=== PATIENT | male | born 1960 | race Caucasian/White ===

== ENCOUNTER 2017-05-24 11:46 | Emergency (ER) | payer BC ==
[2017-05-24 12:03] VITALS: BP 152/115
[2017-05-24] MEDS ORDERED: Oxymetazoline 0.05% Nasal Spray 15 ML Bottle NAS ONE (12:09)
--- NOTE | 2017-05-24 12:10 | EDM.PDOC ---
ED HPI GENERAL MEDICAL PROBLEM - General Chief Complaint: ENT Problem Stated Complaint: Nosebleed Time Seen by Provider: 05/24/17 12:05 Source of Information: Reports: Patient, RN Notes Reviewed History Limitations: Reports: No Limitations - History of Present Illness INITIAL COMMENTS - FREE TEXT/NARRATIVE: 57 year old male presents to the ED with a left nare nose bleed that started around 4:30 this morning. It initially gushed but has continued to ooze since then. He is not on blood thinners. No facial injury. 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: Reports: Other (see below) Other 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: pressure applied - Related Data Allergies Allergy/AdvReac Type Severity Reaction Status Date / Time No Known Allergies Allergy Verified 05/24/17 12:03 Home Meds: Home Meds Indomethacin [Indocin] 25 mg PO DAILY PRN 05/24/17 [History] Past Medical History - Past Health History Medical/Surgical History: Denies Medical/Surgical History HEENT History: Reports: Epistaxis Gastrointestinal History: Reports: Other (See Below) Other Gastrointestinal History: gout Musculoskeletal History: Reports: Gout Social & Family History - Family History Family Medical History: Noncontributory - Tobacco Use Smoking Status *Q: Never Smoker - Caffeine Use Caffeine Use: Reports: Coffee - Alcohol Use Days Per Week of Alcohol Use: 3 Number of Drinks Per Day: 3 Total Drinks Per Week: 9 - Recreational Drug Use Recreational Drug Use: No ED ROS ENT - Review of Systems Review Of Systems: See Below Constitutional: Reports: No Symptoms. Denies: Fever, Chills HEENT: Reports: Nosebleed ED EXAM, ENT - Physical Exam Exam: See Below Exam Limited By: No Limitations General Appearance: Alert, WD/WN, No Apparent Distress Nose: Normal Inspection, Normal Mucousa, Dried Blood (left nare ). No: Nasal Deformity, Nasal Swelling, Nasal Ecchymosis, Septal Deformity, Septal Hematoma, Active Bleeding Mouth/Throat: Normal Inspection, Normal Oropharynx Course - Vital Signs Last Recorded V/S: Last Vital Signs Temp 97.8 F 05/24/17 11:59 Pulse 110 H 05/24/17 11:59 Resp 18 05/24/17 11:59 BP 152/115 H 05/24/17 11:59 Pulse Ox 98 05/24/17 11:59 - Orders/Labs/Meds Meds: Medications Discontinued Medications Generic Name Dose Route Start Last Admin Trade Name Jc PRN Reason Stop Dose Admin Oxymetazoline HCl 1 ml 05/24/17 12:09 05/24/17 12:31 Afrin Original 0.05% Nasal [place] MAHENDRA 05/24/17 12:10 1 ml ONETIME ONE Administration - Re-Assessments/Exams Free Text/Narrative Re-Assessment/Exam: No active bleeding on arrival. Treated successfully with afrin nasal spray and pressure. Educated on treatment at home and prevention of nose bleeds. Educated on return precautions. Departure - Departure Time of Disposition: 12:50 Disposition: Home, Self-Care 01 Condition: Good Clinical Impression: Epistaxis - Discharge Information Instructions: Nosebleed, [id number] Referrals: Malik Salvador Jr, MD [Primary Care Provider] - Forms: ED Department Discharge Additional Instructions: If your nose starts to bleed again, do the same thing we did today. Blow your nose then immediately spray 2-3 sprays of afrin in your nare. Then hold pressure for 10-15 minutes. Return to ER if you are unable to stop the bleeding at home Prevention: 1. Humidifier in your bedroom and main living areas 2. Saline nasal spray to both nostrils twice a day followed by 3. Avery nasal gel twice a day.
== END 2017-05-24 13:17 | disposition home or self-care (01) ==
LOC: JD.ED 11:46
DX: R04.0 Epistaxis (principal); Z79.899 Other long term (current) drug therapy
CPT/HCPCS: 99283; A9270; 99282

== ENCOUNTER 2018-04-04 17:54 | Emergency (ER) | payer BC ==
[2018-04-04 18:04] VITALS: BP 146/102
[2018-04-04] MEDS ORDERED: Lidocaine 1% with EPINEPHrine 1:100,000 20 ML MDV INJECT ONE (19:09)
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
--- NOTE | 2018-04-05 11:05 | CT ---
CT cervical spine Technique: Multiple axial sections were obtained from above C1 inferiorly to the bottom of T3. Reconstructed sagittal and coronal images were reviewed. Comparison: No prior CT cervical spine imaging. Findings: Moderate to severe disc space narrowing is noted at C5-C6 with posterior osteophytes and mild anterior osteophytes. Minimal anterior osteophytes are noted at C6-C7. Vertebral body heights are maintained. Slight degenerative change is noted between the dens and anterior arch of C1. Mild scattered degenerative apophyseal change is seen throughout the cervical spine. No fracture or abnormal subluxation is seen. Neural foramina are fairly well patent. Bony central canal stenosis is seen. Impression: 1. Mild degenerative change. Nothing acute is appreciated on CT study of the cervical spine. Diagnostic code #2 I agree with preliminary report from [facility], finalized at 04/04/18, 9:05 PM Central Time
--- NOTE | 2018-04-05 11:05 | CT ---
Head CT Technique: Multiple axial sections through the brain were obtained. Intravenous contrast was not utilized. Comparison: No prior intracranial imaging. Findings: Large hematoma is seen posteriorly within the soft tissues. Smaller hematoma appears to be present anteriorly within the soft tissues. Ventricles along the basal cisterns and sulci over the convexities are mildly prominent. Minimal diminished density is noted within portions of the periventricular white matter. No other abnormal parenchymal densities are seen. No evidence of intracranial hemorrhage. No midline shift or mass effect is seen. Bone window settings were reviewed which show minimal mucosal thickening within the maxillary sinuses. No acute calvarial abnormality is identified. Impression: 1. Soft tissue hematomas most prominent posteriorly within the scalp. 2. Mild senescent change. 3. No acute intracranial abnormality is identified. No skull fracture is seen. Diagnostic code #3 I agree with preliminary report from [facility], finalized at 04/04/18, 9:01 PM Central Time
== END 2018-04-04 22:00 | disposition home or self-care (01) ==
LOC: JD.ED 17:54
DX: S06.0X0A Concussion without loss of consciousness, initial encounter (principal); S01.01XA Laceration without foreign body of scalp, initial encounter; F10.120 Alcohol abuse with intoxication, uncomplicated; Y90.1 Blood alcohol level of 20-39 mg/100 ml; W19.XXXA Unspecified fall, initial encounter
CPT/HCPCS: 12002; 36415; 70450; 72125; 80053; 85007; 85027; 85610; 85730; 99284; G0480; 99283-25

== ENCOUNTER 2019-09-23 06:17 | Emergency (ER) | payer BC ==
[2019-09-23 06:41] VITALS: BP 132/82; PULSE 129
== END 2019-09-23 07:15 | disposition home or self-care (01) ==
LOC: JD.ED 06:17
DX: Z48.00 Encounter for change or removal of nonsurgical wound dressing (principal)
CPT/HCPCS: 99282

== ENCOUNTER 2019-11-18 17:58 | Emergency (ER) | payer BC ==
--- NOTE | 2019-11-18 18:26 | EDM.PDOC ---
ED HPI GENERAL MEDICAL PROBLEM - General Chief Complaint: ENT Problem Stated Complaint: NOSE BLEED Time Seen by Provider: 11/18/19 18:12 Source of Information: Reports: Patient History Limitations: Reports: No Limitations - History of Present Illness INITIAL COMMENTS - FREE TEXT/NARRATIVE: 39-year-old male presents the ED complaining of recurrent bilateral nosebleeds for last 3 months. He was seen by ear nose and throat surgeon in [place] and advised to use Afrin nasal spray on a when necessary basis which made things only worse. Time he wakes up in the night he's been bleeding from one side of his nose or other. Is been the left side but it's been primarily the right side over the last several months. Of note the patient is a chronic alcoholic and he states he stopped drinking hard alcohol several weeks ago. He still has occasional kelley and beer. Occasional shot of cinnamon schnapps. He denies any hematemesis. Of note the patient has ascites and therefore difficulty making clotting factors. No trauma to his nose. Onset: Other (He has been having problem with intermittent bilateral nosebleeds for the last 3 months.) Duration: Chronic, Getting Worse Location: Reports: Face (Recurrent bilateral nosebleeds.) Quality: Reports: Burning, Other Severity: Moderate (Epistaxis) Improves with: Reports: None Worsens with: Reports: Other Context: Denies: Activity, Exercise, Lifting, Sick Contact, Trauma, Other Associated Symptoms: Reports: Cough, Other. 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 He states he 's quit for the most part over the last several weeks due to persistent nosebleeds recognizing that he is not making any clotting factors. 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[place] Occupation: Employed ED ROS ENT - Review of Systems Review Of Systems: See Below Constitutional: Denies: Fever, Chills, Malaise, Weakness, Fatigue, Decreased Appetite, Weight Loss HEENT: Reports: Nosebleed (Current epistaxis from bilateral sides of his nose.) Respiratory: Reports: Shortness of Breath, Cough Cardiovascular: Reports: No Symptoms Endocrine: Reports: Fatigue GI/Abdominal: Reports: Abdominal Pain, Other (Abdomen is distended due to) : Reports: Frequency Musculoskeletal: Reports: No Symptoms Skin: Reports: No Symptoms Neurological: Reports: No Symptoms Psychiatric: Reports: No Symptoms Hematologic/Lymphatic: Reports: No Symptoms Immunologic: Reports: No Symptoms ED EXAM, ENT - Physical Exam Exam: See Below Exam Limited By: No Limitations General Appearance: Alert, WD/WN, No Apparent Distress, Other (Vital signs show temp to 36.9 pulse is 120 and sinus. Respiratory 16 BP 137/86 pulse ox 94% on room air.) Eye Exam: Bilateral Eye: Normal Inspection (There is no scleral icterus or peripheral pallor.) Nose: Other (On inspection of the nose he's had areas of active bleeding from both sides of the anterior nasal septum. There is no arterial on the right side that bled on contact and took a lot of time to bring under control with silver nitrate. Both anterior aspects of the naris were cauterized with silver nitrate in multiple areas. The mucosa itself is very thin with sheets of blood vessels on the surface. Is contact bleeding on several points with silver nitrate.) GI/Abdominal: Distended (Due to ascites.) Extremities: Normal Inspection, Normal Range of Motion, Non-Tender Neurological: Alert, Oriented, CN II-XII Intact, Normal Cognition, Normal Gait Psychiatric: Normal Affect, Normal Mood Skin: Warm, Dry, Intact, Normal Color, No Rash Course - Vital Signs Last Recorded V/S: Last Vital Signs Temp 36.9 C 11/18/19 18:03 Pulse 120 H 11/18/19 18:03 Resp 16 11/18/19 18:03 BP 137/86 11/18/19 18:03 Pulse Ox - Radiology Interpretation Free Text/Narrative:: 79-year-old male seen through the ED due to bilateral recurrent epistaxis. Patient is a chronic alcoholic who claims that he stopped drinking heavy alcohol particularly for the last several weeks. He doesn't make any clotting factors and has significant ascites and likely esophageal varices. He denies any hemoptysis. Reading has been coming from both sides of his naris left side more so than the right recently. On inspection he did have lot areas with active bleeding on both sides of his anterior nasal septum type. Both areas underwent extensive cauterization with silver nitrate to bring the bleeding under control. Is a small arterial on the right side that was actively bleeding that took direct pressure for a period of time to get it to stop. Was placed. Discharged home to use Polysporin ointment each side of his naris with a Q-tip every night at bedtime for the next week and then Sunday's and Sunday nights for the rest of the ventricle prevent further bleeding. Return to ED if he has further bleeding problems Departure - Departure Time of Disposition: 18:44 Disposition: Home, Self-Care Preliminary Cause of *Q: Sepsis & Multi System Organ Failure Condition: Fair Clinical Impression: Epistaxis - Discharge Information *PRESCRIPTION DRUG MONITORING PROGRAM REVIEWED*: Not Applicable *COPY OF PRESCRIPTION DRUG MONITORING REPORT IN PATIENT MAX: Not Applicable Prescriptions: Bacitracin/Polymyxin B Sulfate [Polysporin Ointment] 28.3 gm TP DAILY #1 tube Instructions: Nosebleed, [id number] Referrals: Danya Egan PA-C [Primary Care Provider] - Forms: ED Department Discharge Additional Instructions: Duration in the emergency room today in regards to recurrent bilateral nosebleeds for the last 3 months. On examination the nasal mucosa or lining of the nose is very thin with numerous blood vessels on the surface of the nose. These tryouts especially in times when there is low humidity in the air. Your previous use of heavy alcohol also contributed to easy bleeding as her liver cannot make clotting factors as well when you are drinking alcohol. I am glad to hear for the most part that you have stopped drinking heavy alcohol. Both sides of the naris underwent cautery in multiple places with silver nitrate. I did find an arterial on the right side of the nose that has been actively bleeding and probably giving him most of your blood loss. Rest not touching her nose for your nose etc. for the next 2 days. Tomorrow night started using some Polysporin ointment with the end of a Q-tip applied to each nasal septum applied a good half an inch up into each side of the nose every night at bedtime for a week. After this use it Sunday and Sunday nights for the rest of the winter to try and prevent any further nosebleeds. Of course return to the ED if you do develop further nosebleed issues. Sepsis Event Note - Evaluation Sepsis Screening Result: No Definite Risk - Focused Exam Vital Signs: Vital Signs Temp Pulse Resp BP 11/18/19 18:03 36.9 C 120 H 16 137/86 Date Exam was Performed: 11/18/19 Time Exam was Performed: 18:55
== END 2019-11-18 19:00 | disposition home or self-care (01) ==
LOC: JD.ED 17:58
CPT/HCPCS: 30903; 99282; 99283-25

== ENCOUNTER 2019-11-20 16:54 | Emergency (ER) | payer BC ==
[2019-11-20 17:14] VITALS: BP 125/89; PULSE 104
--- NOTE | 2019-11-20 17:57 | EDM.PDOC ---
ED HPI GENERAL MEDICAL PROBLEM - General Chief Complaint: ENT Problem Stated Complaint: NOSE BLEED Time Seen by Provider: 11/20/19 17:11 Source of Information: Reports: Patient, RN Notes Reviewed - History of Present Illness INITIAL COMMENTS - FREE TEXT/NARRATIVE: 59 year old male that had bleeding from R nares several hrs ago earlier today. He was to the ED about 2 days ago with large amt bleeding both nares, had multiple areas both nares cauterized. No bleeding for the last few hrs today. Hx cirrhosis, frequent nose bleeds - Related Data Allergies Allergy/AdvReac Type Severity Reaction Status Date / Time No Known Allergies Allergy Verified 11/18/19 18:05 Home Meds: Home Meds Bacitracin/Polymyxin B Sulfate [Polysporin Ointment] 28.3 gm TP DAILY #1 tube [Rx] Allopurinol [Zyloprim] 300 mg PO DAILY 11/20/19 [History] Omeprazole 40 mg PO DAILY 11/20/19 [History] Past Medical History - Past Health History Medical/Surgical History: Denies Medical/Surgical History HEENT History: Reports: Epistaxis Gastrointestinal History: Reports: GERD Other Gastrointestinal History: gout Musculoskeletal History: Reports: Gout Psychiatric History: Reports: Addiction Social & Family History - Family History Family Medical History: Noncontributory - Tobacco Use Smoking Status *Q: Never Smoker - Caffeine Use Caffeine Use: Reports: Coffee, Soda, Tea - Recreational Drug Use Recreational Drug Use: No - Living Situation & Occupation 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: Reports: (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 Denies: Sinus Problem, Throat Pain Respiratory: Denies: Shortness of Breath, Wheezing, Cough Cardiovascular: Denies: Chest Pain GI/Abdominal: Denies: Abdominal Pain, Nausea, Vomiting Musculoskeletal: Reports: No Symptoms Skin: Reports: No Symptoms Neurological: Reports: No Symptoms ED EXAM, DIZZINESS - Physical Exam Exam: See Below General Appearance: Alert, No Apparent Distress Eye Exam: Bilateral Eye: PERRL Nose: Other (there is some crusting and scabbing present R nares, no active bleeding) Throat/Mouth: Normal Inspection, Normal Oropharynx, Other (L nares clear) Head Exam: Atraumatic. No: Facial Swelling Neck: Supple Respiratory/Chest: No Respiratory Distress, Lungs Clear Cardiovascular: Tachycardia GI/Abdominal: Distended Neurological: Alert, No Motor/Sensory Deficits Skin Exam: Warm, Dry, Normal Color Course - Vital Signs Last Recorded V/S: Last Vital Signs Temp 98.8 F 11/20/19 17:12 Pulse 104 H 11/20/19 17:12 Resp 20 11/20/19 17:12 BP 125/89 11/20/19 17:12 Pulse Ox 91 L 11/20/19 17:12 - Re-Assessments/Exams Free Text/Narrative Re-Assessment/Exam: 11/21/19 15:58 No interventions indicated at time of exam, no active bleeding, no blood present R nare to indicate real recent bleeding. Departure - Departure Time of Disposition: 17:56 Disposition: Home, Self-Care 01 Condition: Fair Clinical Impression: Right-sided epistaxis - Discharge Information Instructions: Nosebleed, [id number] Referrals: Danya Egan PA-C [Primary Care Provider] - Forms: ED Department Discharge Additional Instructions: As discussed this will take 4-5 days to completely heal, continue the antibiotic ointment 2-3 times daily to the very distal lower end of your nose to help increase moisturization. Do not blow the right side of your nose and be careful not to pick at the scabs. Pressure if needed for any further bleeding. Nasal spray if needed for any further bleeding not controlled by pressure. Return to ED as needed for bleeding that does not stop with the above measures. Sepsis Event Note - Evaluation Sepsis Screening Result: No Definite Risk - Focused Exam Date Exam was Performed: 11/21/19 Time Exam was Performed: 15:52
== END 2019-11-20 18:10 | disposition home or self-care (01) ==
LOC: JD.ED 16:54
DX: R04.0 Epistaxis (principal); K21.9 Gastro-esophageal reflux disease without esophagitis; Z79.899 Other long term (current) drug therapy
CPT/HCPCS: 99281; 99283

== ENCOUNTER 2019-11-21 21:43 | Emergency (ER) | payer BC ==
[2019-11-21 21:56] VITALS: BP 129/86; PULSE 109
--- NOTE | 2019-11-21 22:24 | EDM.PDOC ---
ED HPI GENERAL MEDICAL PROBLEM - General Chief Complaint: ENT Problem Stated Complaint: NOSE BLEED Time Seen by Provider: 11/21/19 21:48 Source of Information: Reports: Patient History Limitations: Reports: No Limitations - History of Present Illness INITIAL COMMENTS - FREE TEXT/NARRATIVE: Is a 59-year-old male. Onset around 8:30 PM this evening with right-sided nasal bleeding. He attempted to stop the bleeding by pinching the bone part of the nose inside of the soft part of the nose and of course that did not help. By the time he arrived to the ER the bleeding had stopped completely. I explained to him that once the bleeding stops and the scab forms it is not necessarily a good idea to attempt to rise the nose since the blood inside the nose makes it difficult to see where the bleeding started. I also explained that when the nose starts to bleed pinch the soft part of the nose not the bridge of the nose and maybe that will help. He does understand that if it starts to bleed again over the weekend not to sit at home but to come to the ER immediately and we will either pack it or try to cauterize it. He is good with this. Patient denies any liver problems and is on no blood thinners. - Related Data Allergies Allergy/AdvReac Type Severity Reaction Status Date / Time No Known Allergies Allergy Verified 11/21/19 21:56 Home Meds: Home Meds Bacitracin/Polymyxin B Sulfate [Polysporin Ointment] 28.3 gm TP DAILY #1 tube [Rx] Allopurinol [Zyloprim] 300 mg PO DAILY 11/20/19 [History] Omeprazole 40 mg PO DAILY 11/20/19 [History] Past Medical History - Past Health History Medical/Surgical History: Denies Medical/Surgical History HEENT History: Reports: Epistaxis Gastrointestinal History: Reports: GERD Other Gastrointestinal History: gout Musculoskeletal History: Reports: Gout Psychiatric History: Reports: Addiction Social & Family History - Family History Family Medical History: Noncontributory - Tobacco Use Smoking Status *Q: Never Smoker Second Hand Smoke Exposure: No - Caffeine Use Caffeine Use: Reports: Coffee, Soda, Tea - Recreational Drug Use Recreational Drug Use: No - Living Situation & Occupation 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[place] 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: 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 ED ROS ENT - Review of Systems Review Of Systems: See Below Constitutional: Denies: Fever, Chills HEENT: Reports: Nosebleed Respiratory: Denies: Shortness of Breath, Cough Cardiovascular: Reports: No Symptoms Endocrine: Reports: No Symptoms GI/Abdominal: Denies: Abdominal Pain Musculoskeletal: Reports: No Symptoms Skin: Reports: No Symptoms Neurological: Reports: No Symptoms Psychiatric: Reports: No Symptoms Hematologic/Lymphatic: Reports: No Symptoms ED EXAM, ENT - Physical Exam Exam: See Below Exam Limited By: No Limitations General Appearance: Alert, WD/WN, No Apparent Distress Eye Exam: Bilateral Eye: Normal Inspection Ears: Normal External Exam Nose: Other (Dried blood in the right nasal passage, covering the mucous membranes and I cannot tell where the actual bleeding site is, he is no longer having any bleeding anteriorly or down his throat, the left nasal passages normal) Mouth/Throat: Normal Inspection. No: Bleeding Head: Normocephalic Neck: Supple Respiratory/Chest: No Respiratory Distress GI/Abdominal: Other (Has a protuberant abdomen he denies any tenderness) Back: Full Range of Motion Extremities: Normal Range of Motion Neurological: Alert, Oriented Psychiatric: Normal Affect, Normal Mood Skin: Warm, Dry Course - Vital Signs Last Recorded V/S: Last Vital Signs Temp 98.7 F 11/21/19 21:55 Pulse 109 H 11/21/19 21:55 Resp 20 11/21/19 21:55 BP 129/86 11/21/19 21:55 Pulse Ox 91 L 11/21/19 21:55 Departure - Departure Time of Disposition: 22:23 Disposition: Home, Self-Care 01 Condition: Fair Clinical Impression: Right-sided epistaxis - Discharge Information *PRESCRIPTION DRUG MONITORING PROGRAM REVIEWED*: Not Applicable *COPY OF PRESCRIPTION DRUG MONITORING REPORT IN PATIENT MAX: Not Applicable Instructions: Nosebleed, [id number] Referrals: Danya Egan PA-C [Primary Care Provider] - Additional Instructions: Do not pick or blow your nose for the next 24 hours, if over the weekend the nose starts to bleed again pinch the soft part of the nose and if it does not stop in 15 to 20 minutes come back to the ER for possible cauterization or packing, follow-up with your doctor later this week Sepsis Event Note - Evaluation Sepsis Screening Result: No Definite Risk - Focused Exam Vital Signs: Vital Signs Temp Pulse Resp BP Pulse Ox 11/21/19 21:55 98.7 F 109 H 20 129/86 91 L Date Exam was Performed: 11/21/19 Time Exam was Performed: 22:18
== END 2019-11-21 22:28 | disposition home or self-care (01) ==
LOC: JD.ED 21:43
DX: R04.0 Epistaxis (principal); K21.9 Gastro-esophageal reflux disease without esophagitis; Z79.899 Other long term (current) drug therapy
CPT/HCPCS: 99281; 99283

== ENCOUNTER 2019-11-23 08:18 | Emergency (ER) | payer BC ==
[2019-11-23 08:26] VITALS: BP 128/89; PULSE 111
--- NOTE | 2019-11-23 08:42 | EDM.PDOC ---
ED HPI GENERAL MEDICAL PROBLEM - General Chief Complaint: ENT Problem Stated Complaint: NOSE BLEED Time Seen by Provider: 11/23/19 08:37 Source of Information: Reports: Patient History Limitations: Reports: No Limitations - History of Present Illness INITIAL COMMENTS - FREE TEXT/NARRATIVE: 59-year-old male presents to the ED with recurrent right-sided nosebleeds. I had seen him 5 days ago with a similar problem and cauterized signs of the nasal septum. He reports that the right side is been bleeding about every 2-1/2 hours since last evening. Patient is not on any blood thinners. However it is suspect that he has ascites and likely liver failure secondary to chronic alcohol use. Clotting factors have not been checked for a period of time. Since presentation he had the nose bleed pretty well under control. It was coming out of both sides of the nares and down his throat He has been seen in the ED 2 times since I seen him last because of nosebleed. Onset: Other (Been having nosebleeds almost every day for the last several weeks.) Duration: Hour(s):, Getting Worse Location: Reports: Face (Right-sided epistaxis. Recurrent problem) Quality: Reports: Other Severity: Moderate (No pain) Improves with: Reports: Other (From compression of the naris usually will bring it under control for short period of time.) Worsens with: Reports: None Context: Reports: Other (Spontaneous recurrent epistaxis right side). Denies: Activity, Exercise, Lifting, Sick Contact, Trauma Associated Symptoms: Reports: No Other Symptoms Treatments HEMATOLOGY ONCOLOGY CONSULTANT: Reports: Other (see below) (None.) - Related Data Allergies Allergy/AdvReac Type Severity Reaction Status Date / Time No Known Allergies Allergy Verified 11/21/19 21:56 Home Meds: Home Meds Bacitracin/Polymyxin B Sulfate [Polysporin Ointment] 28.3 gm TP DAILY #1 tube [Rx] Allopurinol [Zyloprim] 300 mg PO DAILY 11/20/19 [History] Omeprazole 40 mg PO DAILY 11/20/19 [History] Magnesium Chloride [Slow-Mag] 71.5 mg PO DAILY #60 tablet.dr 11/23/19 [Rx] Potassium Chloride [K-Tab ER] 20 meq PO BID #60 tablet.er 11/23/19 [Rx] Past Medical History - Past Health History Medical/Surgical History: Denies Medical/Surgical History HEENT History: Reports: Epistaxis Gastrointestinal History: Reports: GERD Other Gastrointestinal History: gout Musculoskeletal History: Reports: Gout Psychiatric History: Reports: Addiction Social & Family History - Family History Family Medical History: Noncontributory - Caffeine Use Caffeine Use: Reports: Coffee, Soda, Tea - Living Situation & Occupation 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 Denies : Fever, Chills HEENT: Reports: Nosebleed Respiratory: Reports: No Symptoms Cardiovascular: Reports: No Symptoms Endocrine: Reports: Fatigue GI/Abdominal: Reports: Distension. Denies: Abdominal Pain, Constipation : Reports: Frequency Musculoskeletal: Reports: No Symptoms Skin: Reports: Bruising (Bruises easily.) Neurological: Reports: No Symptoms Psychiatric: Reports: No Symptoms Hematologic/Lymphatic: Reports: No Symptoms Immunologic: Reports: No Symptoms ED EXAM, ENT - Physical Exam Exam: See Below Exam Limited By: No Limitations General Appearance: Alert, WD/WN, Anxious, Moderate Distress Eye Exam: Bilateral Eye: Normal Inspection, PERRL Nose: Active Bleeding (Right anterior nasal septum. Appears to be a small arterial bleed on the superior aspect of the anterior nasal septum approximately 7-8 mm from the opening of the naris.), Other (Dried blood clot within the left naris appreciated) Mouth/Throat: Normal Inspection Head: Atraumatic, Normocephalic Neck: Normal Inspection, Supple, Non-Tender, Full Range of Motion. No: Lymphadenopathy (L), Lymphadenopathy (R) Respiratory/Chest: No Respiratory Distress, Lungs Clear, Normal Breath Sounds, No Accessory Muscle Use Cardiovascular: Normal Peripheral Pulses, Regular Rate, Rhythm, No Gallop, No Murmur, No Rub, Tachycardia GI/Abdominal: Soft, Non-Tender, No Organomegaly, Distended (With dullness to percussion. Question fluid wave suggesting ascites.) Extremities: Normal Inspection, Normal Range of Motion, Non-Tender, Pedal Edema Neurological: Alert, Oriented, CN II-XII Intact, Normal Cognition Psychiatric: Anxious, Other (Cantankerous affect) Skin: Warm, Dry, Intact, Normal Color, No Rash ED ENT PROCEDURES - Epistaxis Procedure Indication: Epistaxis Recent anticoagulants/antiplatlets: Yes Uncontrolled HTN: No Recent septal/nasal surgery: No Site of bleeding: Right Nare, Anterior Clearing of clots: Patient Blew Nose Chemical cautery: Silver Nitrate Topical Anterior Packing: Petrolatum Guaze Strip Course - Vital Signs Last Recorded V/S: Last Vital Signs Temp 36.4 C 11/23/19 08:22 Pulse 111 H 11/23/19 08:22 Resp 18 11/23/19 08:22 BP 128/89 11/23/19 08:22 Pulse Ox 87 L 11/23/19 08:22 - Orders/Labs/Meds Labs: Laboratory Tests 11/23/19 11/23/19 11/23/19 Range/Units 08:49 08:49 08:49 WBC 7.68 (4.23-9.07) K/mm3 RBC 4.26 L (4.63-6.08) M/mm3 Hgb 13.7 D (13.7-17.5) gm/dl Hct 39.7 L (40.1-51.0) % MCV 93.2 H (79.0-92.2) fl MCH 32.2 (25.7-32.2) pg MCHC 34.5 (32.2-35.5) g/dl RDW Std Deviation 44.2 H (35.1-43.9) fL Plt Count 139 L (163-337) K/mm3 MPV 10.1 (9.4-12.3) fl Neut % (Auto) 63.7 (34.0-67.9) % Lymph % (Auto) 21.9 (21.8-53.1) % [place]ot % (Auto) 10.7 (5.3-12.2) % Eos % (Auto) 2.7 (0.8-7.0) Baso % (Auto) 0.9 (0.1-1.2) % Neut # (Auto) 4.89 (1.78-5.38) K/mm3 Lymph # (Auto) 1.68 (1.32-3.57) K/mm3 [place] # (Auto) 0.82 (0.30-0.82) K/mm3 Eos # (Auto) 0.21 (0.04-0.54) K/mm3 Baso # (Auto) 0.07 (0.01-0.08) K/mm3 PT 17.9 H D (9.7-12.0) SECONDS INR 1.69 APTT 33 H (22-31) SECONDS Sodium 132 L (136-145) mEq/L Potassium 2.6 L (3.5-5.1) mEq/L Chloride 92 L (98-107) mEq/L Carbon Dioxide 31 (21-32) mEq/L Anion Gap 11.6 (5-15) BUN 5 L (7-18) mg/dL Creatinine 1.2 (0.7-1.3) mg/dL Est Cr Clr Drug Dosing 76.76 mL/min Estimated GFR (MDRD) > 60 (>60) mL/min BUN/Creatinine Ratio 4.2 L (14-18) Glucose 123 H (74-106) mg/dL Calcium 8.1 L (8.5-10.1) mg/dL Magnesium (1.8-2.4) mg/dl Total Bilirubin 3.9 H (0.2-1.0) mg/dL GGT (15-85) U/L AST 85 H (15-37) U/L ALT 28 (16-63) U/L Alkaline Phosphatase 96 (46-116) U/L Total Protein 9.4 H (6.4-8.2) g/dl Albumin 1.8 L (3.4-5.0) g/dl Globulin 7.6 gm/dL Albumin/Globulin Ratio 0.2 L (1-2) 11/23/19 Range/Units 08:49 WBC (4.23-9.07) K/mm3 RBC (4.63-6.08) M/mm3 Hgb (13.7-17.5) gm/dl Hct (40.1-51.0) % MCV (79.0-92.2) fl MCH (25.7-32.2) pg MCHC (32.2-35.5) g/dl RDW Std Deviation (35.1-43.9) fL Plt Count (163-337) K/mm3 MPV (9.4-12.3) fl Neut % (Auto) (34.0-67.9) % Lymph % (Auto) (21.8-53.1) % [place] % (Auto) (5.3-12.2) % Eos % (Auto) (0.8-7.0) Baso % (Auto) (0.1-1.2) % Neut # (Auto) (1.78-5.38) K/mm3 Lymph # (Auto) (1.32-3.57) K/mm3 Ch[place]ot # (Auto) (0.30-0.82) K/mm3 Eos # (Auto) (0.04-0.54) K/mm3 Baso # (Auto) (0.01-0.08) K/mm3 PT (9.7-12.0) SECONDS INR APTT (22-31) SECONDS Sodium (136-145) mEq/L Potassium (3.5-5.1) mEq/L Chloride (98-107) mEq/L Carbon Dioxide (21-32) mEq/L Anion Gap (5-15) BUN (7-18) mg/dL Creatinine (0.7-1.3) mg/dL Est Cr Clr Drug Dosing mL/min Estimated GFR (MDRD) (>60) mL/min BUN/Creatinine Ratio (14-18) Glucose (74-106) mg/dL Calcium (8.5-10.1) mg/dL Magnesium 1.5 L (1.8-2.4) mg/dl Total Bilirubin (0.2-1.0) mg/dL GGT 117 H (15-85) U/L AST (15-37) U/L ALT (16-63) U/L Alkaline Phosphatase (46-116) U/L Total Protein (6.4-8.2) g/dl Albumin (3.4-5.0) g/dl Globulin gm/dL Albumin/Globulin Ratio (1-2) - Radiology Interpretation Free Text/Narrative:: 59-year-old male presents the ED with a recurrent right-sided epistaxis for the last several weeks. I had seen him 5 days ago and cauterized both sides of the nasal septum with silver nitrate and he said no further bleeding from the left side but he's had recurrent bleeding almost on a daily basis from the right side. On examination today active bleeding is appreciated from the right nasal septum. Appears to have a small arterial that is bleeding from the superior aspect of the right naris. The naris on the right side was once again cauterized with silver nitrate to bring the bleeding under control. The area of concern is a small arterial that is persistently bleeding. I will have labs performed today to include clotting factors see if there is any other reason for him to have recurrent bleeding. - Re-Assessments/Exams Free Text/Narrative Re-Assessment/Exam: 11/23/19 09:25 Labs reveal a normal white count at 7.68. Differential is 64% neutrophils with no bands. Hemoglobin is 13.7 with hematocrit of 39.7. MCV minimally elevated at 93.2. Platelet count 139,000. PT is elevated at 17.9 with an INR of 1.69. PTT is 33. Sodium slightly low at 132 potassium low at 2.6. Chloride 92. Bicarbonate is 31. Anion gap is 11.6. BUN is 5 with a creatinine of 1.2. Glucose 123. Calcium 8.1. Total bilirubin elevated at 3.9 with an AST of 85 and an ALT of 28. Alk phosphatase normal at 96. Total protein is elevated at 9.4 albumin fraction is very low at 1.8. He was brought under control with cauterization on the right side of the naris and then packing with Vaseline Tubegauze which is to remain in place for the next 48 hours. Labs reveal significant hypokalemia which will require potassium substitution. This is the reason that he is not eating very well. The other labs confirm clinical suspicion of significant cirrhosis of the liver with impaired clotting factors and very low albumin fraction. 11/23/19 09:39 Serum magnesium level came back slightly low at 1.5. GGT is 117 slightly elevated.Patient returned to the ED shortly after departure with some bleeding from the right naris. However the packing is not soaked with blood and there is just a bit of dried blood at the anterior naris. I suspect this may been blood just squished from the floor of the naris from the packing. Discussed the findings of the lab work with the patient indicating that he has stage III cirrhosis of the liver and is very important that he stops drinking alcohol completely. He will need a potassium supplement ice slow K 40 mEq once daily and Slow-Mag tablet twice daily. 11/23/19 10:39: Still in the waiting room he appreciated some bleeding at the inferior aspect of his right naris. However on reinspection of the packing the packing itself is not soaked with blood and I think this was just blood oozing from the floor of the naris from the initial bleed. Positioned the packing and we taped it. Patient was given a prescription for Slow-K 20 mg taken twice a day for the next month and Slow-Mag one tablet twice daily as well. He needs lab work checked within the next month. His hypoalbuminemia is contributing to his ascites. Advised increase protein intake via milkshake and [id number] protein shakes. Advised that he clinically has stage III cirrhosis of the liver and that he must stop taking alcohol completely. His indicates that he started drinking blackberry kelley but still has beer on a daily basis. By switching to a beer that has nonalcohol content but tastes like beer such as Heineken 0 etc. Departure - Departure Time of Disposition: 08:58 Disposition: Home, Self-Care 01 Condition: Fair Clinical Impression: Epistaxis, recurrent, Epistaxis Cirrhosis of liver with ascites Qualifiers: Hepatic cirrhosis type: alcoholic cirrhosis Qualified Code(s): K70.31 - Alcoholic cirrhosis of liver with ascites - Discharge Information *PRESCRIPTION DRUG MONITORING PROGRAM REVIEWED*: Not Applicable *COPY OF PRESCRIPTION DRUG MONITORING REPORT IN PATIENT MAX: Not Applicable Prescriptions: Magnesium Chloride [Slow-Mag] 71.5 mg PO DAILY #60 tablet. Potassium Chloride [K-Tab ER] 20 meq PO BID #60 tablet.er Instructions: Nosebleed, [id number] Referrals: Danya Egan PA-C [Primary Care Provider] - Forms: ED Department Discharge Additional Instructions: Evaluation in the emergency room this morning in regards to recurrent bleeding from the right side of your naris over the last several days and weeks. Cauterization was done to both sides of the nose by me 5 days ago. Rt side started to rebleed 2 days after that fact and has bled almost daily since cauterization. Today I could identify an arterial bleed in the right nasal septum and this area was cauterized once again aggressively with silver nitrate. Bleeding did come under good control. The right naris was packed with Vaseline Tubegauz and the packing is to remain in place for the next 2 days. We may remove it herself on SundayNovember 25. I have done some basic lab studies today to make sure that your clotting factors are in order and also to assess how much blood you may have lost. I will call you with the results when they become available later this morning. Lab tests did return and reveal that you did do have cirrhosis of the liver stage III. This means fairly severe liver damage from alcohol use over the years. Stage 4 is as bad as it gets. It's very important therefore that you discontinue all alcohol intake to allow your liver to regenerate to start making clotting factors and the major protein that holds fluid within the blood vessels called albumin. Clotting factors are elevated and off that it is contributing to this recurrence of nose bleeding. Liver can regenerate over a period of a year. The other findings in your lab tests were very low serum magnesium levels and serum potassium levels. Most of this is because of poor oral intake of fluids containing potassium and magnesium such as meat. Suggest a protein drink more milk shake at least once daily. He will then take potassium supplement 20 mEq, Slow-K twice daily for the next month and then I would suggest having it rechecked by her primary care provider and magnesium 1 tablet twice daily 71.5 mg to replenish her magnesium level. Once these are corrected your appetite should start to improve as well. The packing in her nose may be removed on Sunday as discussed above. Sepsis Event Note - Evaluation Sepsis Screening Result: No Definite Risk - Focused Exam Vital Signs: Vital Signs Temp Pulse Resp BP Pulse Ox 11/23/19 08:22 36.4 C 111 H 18 128/89 87 L Date Exam was Performed: 11/23/19 Time Exam was Performed: 13:41
== END 2019-11-23 10:09 | disposition home or self-care (01) ==
LOC: JD.ED 08:18
DX: R04.0 Epistaxis (principal); K70.31 Alcoholic cirrhosis of liver with ascites; K21.9 Gastro-esophageal reflux disease without esophagitis; Z79.899 Other long term (current) drug therapy
CPT/HCPCS: 30901; 36415; 80053; 82977; 83735; 85025; 85610; 85730; 99282; 99283-25

== ENCOUNTER 2019-11-24 09:22 | Emergency (ER) | payer BC ==
[2019-11-24 09:34] VITALS: BP 124/93; PULSE 116
[2019-11-24] MEDS ORDERED: Oxymetazoline 0.05% Nasal Spray 30 ML Bottle NAS ONE (10:43)
--- NOTE | 2019-11-24 10:57 | EDM.PDOC ---
ED HPI GENERAL MEDICAL PROBLEM - General Chief Complaint: ENT Problem Stated Complaint: NOSE BLEED Time Seen by Provider: 11/24/19 09:54 Source of Information: Reports: Patient, Old Records (visits from 11/20, 11/21, ) History Limitations: Reports: No Limitations - History of Present Illness INITIAL COMMENTS - FREE TEXT/NARRATIVE: Patient is a 59-year-old male who presents to the ED for the evaluation of a right-sided nosebleed. This is about the fourth day in a row that he has presented to this ER for management. He has had nasal packing placed, however appreciate some bleeding through the nasal packing this morning again. Patient denies being on any blood thinners, he is denying any other symptoms, he most recently had labs done yesterday that showed some cirrhosis and electrolyte abnormalities. Patient is not complaining of any other symptoms other than the nosebleed. - Related Data Allergies Allergy/AdvReac Type Severity Reaction Status Date / Time No Known Allergies Allergy Verified 11/24/19 09:33 Home Meds: Home Meds Bacitracin/Polymyxin B Sulfate [Polysporin Ointment] 28.3 gm TP DAILY #1 tube [Rx] Allopurinol [Zyloprim] 300 mg PO DAILY 11/20/19 [History] Omeprazole 40 mg PO DAILY 11/20/19 [History] Magnesium Chloride [Slow-Mag] 71.5 mg PO DAILY #60 tablet.dr 11/23/19 [Rx] Potassium Chloride [K-Tab ER] 20 meq PO BID #60 tablet.er 11/23/19 [Rx] Past Medical History HEENT History: Reports: Epistaxis (recurrent right sided) Gastrointestinal History: Reports: GERD Other Gastrointestinal History: gout Musculoskeletal History: Reports: Gout Psychiatric History: Reports: Addiction Social & Family History - Family History Family Medical History: Noncontributory - Tobacco Use Smoking Status *Q: Never Smoker - Caffeine Use Caffeine Use: Reports: Coffee - Recreational Drug Use Recreational Drug Use: No - Living Situation & Occupation 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: Reports: (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 HEENT: Reports: Nosebleed (R side) ED EXAM, ENT - Physical Exam Exam: See Below Exam Limited By: No Limitations General Appearance: Alert, WD/WN, No Apparent Distress Eye Exam: Bilateral Eye: EOMI, Normal Inspection, PERRL Ears: Normal External Exam Nose: Normal Inspection, Normal Mucousa, Active Bleeding (R side anterior septum , about .75cm into nare/) Mouth/Throat: Normal Inspection, Normal Gums, Normal Lips, Normal Oropharynx, Normal Teeth Neck: Normal Inspection Respiratory/Chest: No Respiratory Distress, Lungs Clear, Normal Breath Sounds, No Accessory Muscle Use, Chest Non-Tender Cardiovascular: Normal Peripheral Pulses, Regular Rate, Rhythm, No Murmur Extremities: Normal Inspection, Normal Capillary Refill Neurological: Alert, Oriented, Normal Cognition, No Motor/Sensory Deficits Psychiatric: Normal Affect, Normal Mood Skin: Warm, Dry, Intact, Normal Color, No Rash Course - Vital Signs Last Recorded V/S: Last Vital Signs Temp 98.5 F 11/24/19 09:32 Pulse 116 H 11/24/19 09:32 Resp 18 11/24/19 09:32 BP 124/93 H 11/24/19 09:32 Pulse Ox 88 L 11/24/19 09:32 - Orders/Labs/Meds Meds: Medications Discontinued Medications Generic Name Dose Route Start Last Admin Trade Name Freq PRN Reason Stop Dose Admin Cocaine HCl 1 ml 11/24/19 10:43 11/24/19 10:51 Cocaine Hcl TOP 11/24/19 10:44 1 ml ONETIME ONE Administration Oxymetazoline HCl 1 ml 11/24/19 10:43 11/24/19 10:51 Nasal Decongestant [place] MAHENDRA 11/24/19 10:44 1 ml ONETIME ONE Administration - Re-Assessments/Exams Free Text/Narrative Re-Assessment/Exam: 11/24/19 11:00 Patient presents to the ED for the evaluation of a right-sided nosebleed. Again this is about the fourth day in a row that the gentleman has been here with the same complaints. He had a Vaseline gauze packing placed yesterday, I did explain to him that the only way we might be able to get this nosebleed under control is to put a Rhino Rocket in for few days, he has not overly enthused about this, and asks that we try other modalities before doing this. I did order some cocaine and oxymetolazone to try to pack the area to stop the bleeding, patient will be reassessed after that packing is placed. 11/24/19 11:43 Bleeding was slowed after the cocaine and oxymetolazone, however there is an active site of bleeding at the site appreciated on initial exam, silver nitrate cautery was applied to this area, electrocautery was also tried, and eventually a Vaseline gauze was placed, and tape was applied. Patient will be reassessed in 15 to 20 minutes, will likely be sent home with general recommendations. Departure - Departure Time of Disposition: 12:01 Disposition: Home, Self-Care 01 Condition: Fair Clinical Impression: Epistaxis, recurrent - Discharge Information *PRESCRIPTION DRUG MONITORING PROGRAM REVIEWED*: No *COPY OF PRESCRIPTION DRUG MONITORING REPORT IN PATIENT MAX: No Instructions: Nosebleed, [id number] Forms: ED Department Discharge Additional Instructions: You were evaluated in the ER today regarding your right-sided nosebleed. This area was cauterized with silver nitrate, electrocautery, and a Vaseline gauze was placed to the nasal passage to help provide some compression. This will need to stay in place for around 2 days, you may try to remove it yourself on 11/26/2019. Highly and strongly recommend that you follow-up with the ENT that you previously saw for your nosebleeds, as this seems to be an ongoing thing for you. I would suggest you try to call his office sometime today to see if he could not reevaluate you in a few days. If the Vaseline gauze does not seem to be helping the bleed stopped, you may need to have a Rhino Rocket placed for further management of your nosebleeds. Please take all medications as previously directed from last ER visit. Please return to the ER however if your symptoms change or worsen. Sepsis Event Note - Evaluation Sepsis Screening Result: No Definite Risk - Focused Exam Vital Signs: Vital Signs Temp Pulse Resp BP Pulse Ox 11/24/19 09:32 98.5 F 116 H 18 124/93 H 88 L Date Exam was Performed: 11/24/19 Time Exam was Performed: 12:01
== END 2019-11-24 12:25 | disposition home or self-care (01) ==
LOC: JD.ED 09:22
DX: R04.0 Epistaxis (principal); M10.9 Gout, unspecified; K21.9 Gastro-esophageal reflux disease without esophagitis; Z79.899 Other long term (current) drug therapy
CPT/HCPCS: 30901; 99283; A9270; 30903; 99281

== ENCOUNTER 2019-11-25 02:47 | Emergency (ER) | payer BC ==
[2019-11-25] MEDS ORDERED: Oxymetazoline 0.05% Nasal Spray 30 ML Bottle NAS ONE (02:54)
[2019-11-25] MEDS ORDERED: Lidocaine 1% with EPINEPHrine 1:100,000 20 ML MDV INJECT ONE (02:54)
[2019-11-25 02:58] VITALS: BP 124/83; PULSE 114
[2019-11-25] MEDS ORDERED: Tranexamic Acid 1,000 MG in Sodium Chloride 0.9% 100 ML IV SCH (03:00)
--- NOTE | 2019-11-25 03:52 | EDM.PDOC ---
ED HPI GENERAL MEDICAL PROBLEM - General Chief Complaint: ENT Problem Stated Complaint: NOSEBLEED Time Seen by Provider: 11/25/19 02:54 Source of Information: Reports: Patient, Family History Limitations: Reports: No Limitations - History of Present Illness INITIAL COMMENTS - FREE TEXT/NARRATIVE: The patient presents with a nose bleed. This has been an ongoing problem for a few weeks. He went to ENT and was told to use Afrin but that is not helping. He was jamal here yesterday and packed with petroleum gauze and that did stop the bleeding until early this morning when the right nostril started to bleed again. He is okay trying the rhino rocket tonight. He is a chronic drinker and may have liver disease. Onset: Sudden Duration: Minutes: Location: Reports: Other (right nostril) Improves with: Reports: None Worsens with: Reports: None Associated Symptoms: Reports: No Other Symptoms - Related Data Allergies Allergy/AdvReac Type Severity Reaction Status Date / Time No Known Allergies Allergy Verified 11/25/19 02:58 Home Meds: Home Meds Bacitracin/Polymyxin B Sulfate [Polysporin Ointment] 28.3 gm TP DAILY #1 tube [Rx] Allopurinol [Zyloprim] 300 mg PO DAILY 11/20/19 [History] Omeprazole 40 mg PO DAILY 11/20/19 [History] Magnesium Chloride [Slow-Mag] 71.5 mg PO DAILY #60 tablet. 11/23/19 [Rx] Potassium Chloride [K-Tab ER] 20 meq PO BID #60 tablet.er 11/23/19 [Rx] Cephalexin [Keflex] 500 mg PO TID #21 capsule 11/25/19 [Rx] Past Medical History - Past Health History Medical/Surgical History: Denies Medical/Surgical History HEENT History: Reports: Epistaxis Gastrointestinal History: Reports: GERD Other Gastrointestinal History: gout Musculoskeletal History: Reports: Gout Psychiatric History: Reports: Addiction Social & Family History - Family History Family Medical History: Noncontributory - Tobacco Use Smoking Status *Q: Never Smoker Second Hand Smoke Exposure: No - Caffeine Use Caffeine Use: Reports: Coffee - Recreational Drug Use Recreational Drug Use: No - Living Situation & Occupation 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.) Occupation: Employed ED ROS ENT - Review of Systems Review Of Systems: See Below Constitutional: Reports: No Symptoms HEENT: Reports: Nosebleed Respiratory: Reports: No Symptoms Cardiovascular: Reports: No Symptoms Endocrine: Reports: No Symptoms GI/Abdominal: Reports: No Symptoms : Reports: No Symptoms Musculoskeletal: Reports: No Symptoms ED EXAM, ENT - Physical Exam Exam: See Below Exam Limited By: No Limitations General Appearance: Alert, No Apparent Distress Ears: Normal External Exam Nose: Other (Bleeding from right nostril) Mouth/Throat: Normal Inspection Head: Atraumatic, Normocephalic Respiratory/Chest: No Respiratory Distress GI/Abdominal: Distended ED ENT PROCEDURES - Epistaxis Procedure Indication: Epistaxis Recent anticoagulants/antiplatlets: No Uncontrolled HTN: No Recent septal/nasal surgery: No Site of bleeding: Right Nare Clearing of clots: Patient Blew Nose Topical Meds: Phenylephrine, Other (TXA and lidocaine with epinephrine) Ice pack to area: No Anterior Packing: Inflatable Nasal Tampon Complications: No Course - Vital Signs Last Recorded V/S: Last Vital Signs Temp 98.2 F 11/25/19 02:55 Pulse 114 H 11/25/19 02:55 Resp 19 11/25/19 02:55 BP 124/83 11/25/19 02:55 Pulse Ox 90 L 11/25/19 02:55 - Orders/Labs/Meds Orders: Active Orders 24 hr Category Date Time Status Tranexamic Acid [Cyklokapron] 1,000 mg Med 11/25/19 03:00 Active Sodium Chloride 0.9% [Normal Saline] 100 ml IV ONETIME Medication Orders Tranexamic Acid 1,000 mg/ (Sodium Chloride) 110 mls @ 400 mls/hr IV ONETIME CHRIS Last Admin: 11/25/19 03:30 Dose: 400 mls/hr Meds: Medications Generic Name Dose Route Start Last Admin Trade Name Freq PRN Reason Stop Dose Admin Tranexamic Acid 1,000 mg/ 110 mls @ 400 mls/hr 11/25/19 03:00 11/25/19 03:30 Sodium Chloride IV 400 mls/hr ONETIME CHRIS Administration Discontinued Medications Generic Name Dose Route Start Last Admin Trade Name Freq PRN Reason Stop Dose Admin Lidocaine/Epinephrine 20 ml 11/25/19 02:54 11/25/19 03:29 Xylocaine 1% With Epinephrine 1:100,000 INJECT 11/25/19 02:55 20 ml ONETIME ONE Administration Oxymetazoline HCl 5 ml 11/25/19 02:54 11/25/19 03:29 Nasal Decongestant [place] MAHENDRA 11/25/19 02:55 5 ml ONETIME ONE Administration - Re-Assessments/Exams Free Text/Narrative Re-Assessment/Exam: 11/25/19 03:51 I soaked the rhino rocket in TXA, lidocaine with epinephrine and Afrin. I was able to stop the bleeding. I will discharge him home. Departure - Departure Time of Disposition: 04:00 Disposition: Home, Self-Care 01 Condition: Good Clinical Impression: Epistaxis - Discharge Information *PRESCRIPTION DRUG MONITORING PROGRAM REVIEWED*: Not Applicable *COPY OF PRESCRIPTION DRUG MONITORING REPORT IN PATIENT MAX: Not Applicable Prescriptions: Cephalexin [Keflex] 500 mg PO TID #21 capsule Referrals: Danya Egan PA-C [Primary Care Provider] - 3 Days Forms: ED Department Discharge Additional Instructions: Try to leave this rhino rocket in for 3 days. Take the keflex 3 times per day for 7 days to prevent infection. Please return if you are worse. See your ENT doctor or your doctor to have the rocket removed. Sepsis Event Note - Evaluation Sepsis Screening Result: No Definite Risk - Focused Exam Vital Signs: Vital Signs Temp Pulse Resp BP Pulse Ox 11/25/19 02:55 98.2 F 114 H 19 124/83 90 L Date Exam was Performed: 11/25/19 Time Exam was Performed: 03:55 - My Orders Last 24 Hours: My Active Orders 11/25/19 03:00 Tranexamic Acid [Cyklokapron] 1,000 mg Sodium Chloride 0.9% [Normal Saline] 100 ml IV ONETIME - Assessment/Plan Last 24 Hours: My Active Orders 11/25/19 03:00 Tranexamic Acid [Cyklokapron] 1,000 mg Sodium Chloride 0.9% [Normal Saline] 100 ml IV ONETIME
== END 2019-11-25 04:02 | disposition home or self-care (01) ==
LOC: JD.ED 02:47
DX: R04.0 Epistaxis (principal); M10.9 Gout, unspecified; K21.9 Gastro-esophageal reflux disease without esophagitis; Z79.899 Other long term (current) drug therapy
CPT/HCPCS: 30903; 99283; A9270; J7050; 30901; 99282

== ENCOUNTER 2019-11-28 10:13 | Emergency (ER) | payer BC ==
--- NOTE | 2019-11-28 11:10 | EDM.PDOC ---
ED HPI GENERAL MEDICAL PROBLEM - General Chief Complaint: ENT Problem Stated Complaint: NOSE BLEED FOLLOW UP Time Seen by Provider: 11/28/19 10:50 Source of Information: Reports: Patient, Old Records, RN Notes Reviewed History Limitations: Reports: No Limitations - History of Present Illness INITIAL COMMENTS - FREE TEXT/NARRATIVE: Patient is a 59-year-old male who presents to the ED to have nasal packing removed. The patient has been seen here multiple times in the last week for a recurrent nosebleed in his right nare. He most recently had a Rhino Rocket placed in the anode rebuilder hours of November 25. Patient does have an ENT that he has seen in the past for nosebleeds, but he states it did not do much for him as the bleeding had stopped when he went to go see his ENT. He has not made an appointment with his ENT or his primary care provider for further evaluation of why he is more predisposed to nosebleeds at this time. He is not complaining of any other symptoms. He states that the bleeding did stop after the Rhino Rocket was placed however it did ooze a little bit around the Rhino Rocket. - Related Data Allergies Allergy/AdvReac Type Severity Reaction Status Date / Time No Known Allergies Allergy Verified 11/25/19 02:58 Home Meds: Home Meds Bacitracin/Polymyxin B Sulfate [Polysporin Ointment] 28.3 gm TP DAILY #1 tube [Rx] Allopurinol [Zyloprim] 300 mg PO DAILY 11/20/19 [History] Omeprazole 40 mg PO DAILY 11/20/19 [History] Magnesium Chloride [Slow-Mag] 71.5 mg PO DAILY #60 tablet.dr 11/23/19 [Rx] Potassium Chloride [K-Tab ER] 20 meq PO BID #60 tablet.er 11/23/19 [Rx] Cephalexin [Keflex] 500 mg PO TID #21 capsule 11/25/19 [Rx] Past Medical History - Past Health History Medical/Surgical History: Denies Medical/Surgical History HEENT History: Reports: Epistaxis Gastrointestinal History: Reports: GERD Other Gastrointestinal History: gout Musculoskeletal History: Reports: Gout Psychiatric History: Reports: Addiction Social & Family History - Family History Family Medical History: Noncontributory - Caffeine Use Caffeine Use: Reports: Coffee - Living Situation & Occupation 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: Reports: (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 No: Active Bleeding (directly after the rhino rocket was removed.) Mouth/Throat: Normal Inspection, Normal Gums, Normal Lips, Normal Oropharynx, Normal Teeth Respiratory/Chest: No Respiratory Distress, Lungs Clear, Normal Breath Sounds, No Accessory Muscle Use, Chest Non-Tender Cardiovascular: Normal Peripheral Pulses, Regular Rate, Rhythm, No Edema, No Murmur Neurological: Alert, Oriented, Normal Cognition, No Motor/Sensory Deficits Psychiatric: Normal Affect, Normal Mood Skin: Warm, Dry, Intact, Normal Color, No Rash Course - Vital Signs Last Recorded V/S: Last Vital Signs Temp 96.8 F 11/28/19 10:35 Pulse 104 H 11/28/19 10:35 Resp 16 11/28/19 10:35 BP 120/80 11/28/19 10:35 Pulse Ox 92 L 11/28/19 10:35 - Re-Assessments/Exams Free Text/Narrative Re-Assessment/Exam: 11/28/19 11:11 The Rhino Rocket was taken out of the patient's right nare with little to no difficulty. There was no active bleeding noted initially after taking the Rhino Rocket out. There is lots of dried blood around the area, but is did not disturb the area I will not try clean the dried blood at this time. I will direct the patient to go home and lightly scrub the area. He will be monitored in the ER for a little while to make sure that the bleeding has definitely stopped. Departure - Departure Time of Disposition: 11:12 Disposition: Home, Self-Care 01 Condition: Fair Clinical Impression: Encounter for removal of nasal packing - Discharge Information *PRESCRIPTION DRUG MONITORING PROGRAM REVIEWED*: No *COPY OF PRESCRIPTION DRUG MONITORING REPORT IN PATIENT MAX: No Referrals: Danya Egan PA-C [Primary Care Provider] - Additional Instructions: You were evaluated in the ER today for removal of a nasal packing. This was removed without much difficulty. And there was no active bleeding noted after the packing was taken out. Please try to continue to use the nasal moisturizing gel or the bacitracin as previously directed by Dr. Macias in one of your previous visits, this will help keep the nasal passages moist, and help try to prevent from further nosebleeds. Highly and strongly recommend that you follow-up with an ENT and your regular doctor for why you seem to be more predisposed to these nosebleeds. Please return to the ER at any time however if your symptoms change or worsen. Sepsis Event Note - Evaluation Sepsis Screening Result: No Definite Risk - Focused Exam Vital Signs: Vital Signs Temp Pulse Resp BP Pulse Ox 11/28/19 10:35 96.8 F 104 H 16 120/80 92 L Date Exam was Performed: 11/28/19 Time Exam was Performed: 11:05
== END 2019-11-28 11:48 | disposition home or self-care (01) ==
LOC: JD.ED 10:13
CPT/HCPCS: 99281; 99282

== ENCOUNTER 2019-12-09 14:29 | Emergency (ER) | payer BC ==
[2019-12-09] MEDS ORDERED: Sodium Chloride 0.9% 10 ML Syringe FLUSH PRN (15:57)
--- NOTE | 2019-12-09 16:58 | CR ---
Chest: Portable view of the chest was obtained. Comparison: Prior chest x-ray of 11/15/12. Large right sided pleural effusion is noted. Left lung is clear. Heart size appears within normal limits for portable technique. Tortuous thoracic aorta is seen. Impression: 1. Large right-sided pleural effusion. Diagnostic code #3 Study was dictated in [place] Standard Time
[2019-12-09 17:59] VITALS: BP 132/79; PULSE 100
--- NOTE | 2019-12-15 08:55 | EDM.PDOC ---
ED HPI GENERAL MEDICAL PROBLEM - General Chief Complaint: Respiratory Problem Stated Complaint: SOB/CONGESTION/COUGH Time Seen by Provider: 12/09/19 15:26 Source of Information: Reports: Patient, Family, RN Notes Reviewed - History of Present Illness INITIAL COMMENTS - FREE TEXT/NARRATIVE: 59 year old male comes in with worsening dyspnea, especially with even minimal exertion over the past few day. Occasional cough. No fever or chills. He does have hx of progressing cirrhosis. Has had some recent nose bleed problems. Increasing abd distension. Has never had fluid taken off abd or lungs. No ankle edema. No abd pain, nausea or vomiting. - Related Data Allergies Allergy/AdvReac Type Severity Reaction Status Date / Time No Known Allergies Allergy Verified 12/09/19 14:57 Home Meds: Home Meds Bacitracin/Polymyxin B Sulfate [Polysporin Ointment] 28.3 gm TP DAILY #1 tube [Rx] Allopurinol [Zyloprim] 300 mg PO DAILY 11/20/19 [History] Omeprazole 40 mg PO DAILY 11/20/19 [History] Magnesium Chloride [Slow-Mag] 71.5 mg PO DAILY #60 tablet. 11/23/19 [Rx] Potassium Chloride [K-Tab ER] 20 meq PO BID #60 tablet.er 11/23/19 [Rx] Cephalexin [Keflex] 500 mg PO TID #21 capsule 11/25/19 [Rx] Past Medical History - Past Health History Medical/Surgical History: Denies Medical/Surgical History HEENT History: Reports: Epistaxis Gastrointestinal History: Reports: GERD Other Gastrointestinal History: gout Musculoskeletal History: Reports: Gout Psychiatric History: Reports: Addiction Social & Family History - Family History Family Medical History: Noncontributory - Tobacco Use Smoking Status *Q: Never Smoker - Caffeine Use Caffeine Use: Reports: None - Recreational Drug Use Recreational Drug Use: No - Living Situation & Occupation 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 Denies: Wheezing, Sputum, Hemoptysis Cardiovascular: Denies: Chest Pain Endocrine: Reports: Fatigue GI/Abdominal: Reports: Decreased Appetite. Denies: Abdominal Pain, Nausea, Vomiting Musculoskeletal: Reports: No Symptoms Skin: Reports: No Symptoms Neurological: Reports: Dizziness, Weakness (mild generalized). Denies: Numbness , Tingling, Change in Speech, Gait Disturbance Psychiatric: Reports: No Symptoms ED EXAM, GENERAL - Physical Exam Exam: See Below General Appearance: Alert, Mild Distress (moderate tachypnea on arrival to ED) Eye Exam: Bilateral Eye: PERRL Throat/Mouth: Normal Inspection, Normal Oropharynx Head: Atraumatic. No: Facial Swelling Neck: Supple, Full Range of Motion Respiratory/Chest: Respiratory Distress (mild), Other (no breath sounds on the right). No: Rhonchi, Wheezing Cardiovascular: Tachycardia GI/Abdominal: Distended (marked suggestive for ascites) Back Exam: No: CVA Tenderness (L), CVA Tenderness (R) Extremities: Normal Inspection. No: Pedal Edema, Leg Pain, Increased Warmth, Redness Neurological: Oriented, No Motor/Sensory Deficits Skin Exam: Warm, Dry, Pallor Course - Vital Signs Last Recorded V/S: Last Vital Signs Temp 98.1 F 12/09/19 17:55 Pulse 100 12/09/19 17:55 Resp 28 H 12/09/19 17:55 BP 132/79 12/09/19 17:55 Pulse Ox 93 L 12/09/19 17:55 - Orders/Labs/Meds Labs: Laboratory Tests 12/09/19 12/09/19 12/09/19 Range/Units 15:55 15:55 15:55 WBC 8.18 (4.23-9.07) K/mm3 RBC 4.01 L (4.63-6.08) M/mm3 Hgb 12.7 L (13.7-17.5) gm/dl Hct 37.3 L (40.1-51.0) % MCV 93.0 H (79.0-92.2) fl MCH 31.7 (25.7-32.2) pg MCHC 34.0 (32.2-35.5) g/dl RDW Std Deviation 45.0 H (35.1-43.9) fL Plt Count 148 L (163-337) K/mm3 MPV 10.2 (9.4-12.3) fl Neut % (Auto) 77.8 H (34.0-67.9) % Lymph % (Auto) 11.1 L (21.8-53.1) % Spink % (Auto) 9.3 (5.3-12.2) % Eos % (Auto) 1.2 (0.8-7.0) Baso % (Auto) 0.5 (0.1-1.2) % Neut # (Auto) 6.36 H (1.78-5.38) K/mm3 Lymph # (Auto) 0.91 L (1.32-3.57) K/mm3 Spink # (Auto) 0.76 (0.30-0.82) K/mm3 Eos # (Auto) 0.10 (0.04-0.54) K/mm3 Baso # (Auto) 0.04 (0.01-0.08) K/mm3 PT (9.7-12.0) SECONDS INR APTT (22-31) SECONDS Sodium 135 L (136-145) mEq/L Potassium 3.5 (3.5-5.1) mEq/L Chloride 99 (98-107) mEq/L Carbon Dioxide 22 (21-32) mEq/L Anion Gap 17.5 H (5-15) BUN 6 L (7-18) mg/dL Creatinine 1.2 (0.7-1.3) mg/dL Est Cr Clr Drug Dosing 76.76 mL/min Estimated GFR (MDRD) > 60 (>60) mL/min BUN/Creatinine Ratio 5.0 L (14-18) Glucose 151 H (74-106) mg/dL Calcium 8.6 (8.5-10.1) mg/dL Total Bilirubin 3.6 H (0.2-1.0) mg/dL AST 94 H (15-37) U/L ALT 40 (16-63) U/L Alkaline Phosphatase 86 (46-116) U/L Ammonia (11-32) umol/L NT-Pro-B Natriuret Pep 567 H (0-125) pg/mL Total Protein 9.2 H (6.4-8.2) g/dl Albumin 1.8 L (3.4-5.0) g/dl Globulin 7.4 gm/dL Albumin/Globulin Ratio 0.2 L (1-2) Ethyl Alcohol (0.00) gm% 12/09/19 12/09/19 12/09/19 Range/Units 15:55 15:55 15:55 WBC (4.23-9.07) K/mm3 RBC (4.63-6.08) M/mm3 Hgb (13.7-17.5) gm/dl Hct (40.1-51.0) % MCV (79.0-92.2) fl MCH (25.7-32.2) pg MCHC (32.2-35.5) g/dl RDW Std Deviation (35.1-43.9) fL Plt Count (163-337) K/mm3 MPV (9.4-12.3) fl Neut % (Auto) (34.0-67.9) % Lymph % (Auto) (21.8-53.1) % Spink % (Auto) (5.3-12.2) % Eos % (Auto) (0.8-7.0) Baso % (Auto) (0.1-1.2) % Neut # (Auto) (1.78-5.38) K/mm3 Lymph # (Auto) (1.32-3.57) K/mm3 Spink # (Auto) (0.30-0.82) K/mm3 Eos # (Auto) (0.04-0.54) K/mm3 Baso # (Auto) (0.01-0.08) K/mm3 PT (9.7-12.0) SECONDS INR APTT 34 H (22-31) SECONDS Sodium (136-145) mEq/L Potassium (3.5-5.1) mEq/L Chloride (98-107) mEq/L Carbon Dioxide (21-32) mEq/L Anion Gap (5-15) BUN (7-18) mg/dL Creatinine (0.7-1.3) mg/dL Est Cr Clr Drug Dosing mL/min Estimated GFR (MDRD) (>60) mL/min BUN/Creatinine Ratio (14-18) Glucose (74-106) mg/dL Calcium (8.5-10.1) mg/dL Total Bilirubin (0.2-1.0) mg/dL AST (15-37) U/L ALT (16-63) U/L Alkaline Phosphatase (46-116) U/L Ammonia < 10 L (11-32) umol/L NT-Pro-B Natriuret Pep (0-125) pg/mL Total Protein (6.4-8.2) g/dl Albumin (3.4-5.0) g/dl Globulin gm/dL Albumin/Globulin Ratio (1-2) Ethyl Alcohol 0.00 (0.00) gm% 12/09/19 Range/Units 15:55 WBC (4.23-9.07) K/mm3 RBC (4.63-6.08) M/mm3 Hgb (13.7-17.5) gm/dl Hct (40.1-51.0) % MCV (79.0-92.2) fl MCH (25.7-32.2) pg MCHC (32.2-35.5) g/dl RDW Std Deviation (35.1-43.9) fL Plt Count (163-337) K/mm3 MPV (9.4-12.3) fl Neut % (Auto) (34.0-67.9) % Lymph % (Auto) (21.8-53.1) % Spink % (Auto) (5.3-12.2) % Eos % (Auto) (0.8-7.0) Baso % (Auto) (0.1-1.2) % Neut # (Auto) (1.78-5.38) K/mm3 Lymph # (Auto) (1.32-3.57) K/mm3 Spink # (Auto) (0.30-0.82) K/mm3 Eos # (Auto) (0.04-0.54) K/mm3 Baso # (Auto) (0.01-0.08) K/mm3 PT 19.0 H (9.7-12.0) SECONDS INR 1.80 APTT (22-31) SECONDS Sodium (136-145) mEq/L Potassium (3.5-5.1) mEq/L Chloride (98-107) mEq/L Carbon Dioxide (21-32) mEq/L Anion Gap (5-15) BUN (7-18) mg/dL Creatinine (0.7-1.3) mg/dL Est Cr Clr Drug Dosing mL/min Estimated GFR (MDRD) (>60) mL/min BUN/Creatinine Ratio (14-18) Glucose (74-106) mg/dL Calcium (8.5-10.1) mg/dL Total Bilirubin (0.2-1.0) mg/dL AST (15-37) U/L ALT (16-63) U/L Alkaline Phosphatase (46-116) U/L Ammonia (11-32) umol/L NT-Pro-B Natriuret Pep (0-125) pg/mL Total Protein (6.4-8.2) g/dl Albumin (3.4-5.0) g/dl Globulin gm/dL Albumin/Globulin Ratio (1-2) Ethyl Alcohol (0.00) gm% Meds: Medications Discontinued Medications Generic Name Dose Route Start Last Admin Trade Name Freq PRN Reason Stop Dose Admin Sodium Chloride 10 ml 12/09/19 15:57 12/09/19 15:56 Saline Flush FLUSH 10 ml ASDIRECTED PRN Administration Keep Vein Open - Re-Assessments/Exams Free Text/Narrative Re-Assessment/Exam: 12/15/19 08:59.CXR showed huge pleural effusion on the right taking up most of his lung field. L chest clear. Hgb 12.7, INR 1.8. AST 94, bili3.6, ammonia less than 10, etoh 0. I discussed with Dr Carmichael, Gen. Surgeon box person regarding possible admission for thoracentsis here. He suggests that IR can do a better job with this and maybe a more definitive treatment so does suggest transfer [facility]. Have made arrangements for transfer to [facility]. Hospitalist box person accepting Phys. Transfer by ground ambulance. When oxygen turned off sats dropped quickly down to mid 80's. Maintaining sats in low 90's with 0 2 at 2 to 3 L NC. Departure - Departure Time of Disposition: 18:40 Disposition: DC/Tfer to Acute Hospital 02 Condition: Serious Clinical Impression: Pleural effusion associated with hepatic disorder, Hypoxia Cirrhosis of liver Qualifiers: Hepatic cirrhosis type: alcoholic cirrhosis Ascites presence: with ascites Qualified Code(s): K70.31 - Alcoholic cirrhosis of liver with ascites - Discharge Information Referrals: Danya Egan PA-C [Primary Care Provider] - Forms: ED Department Discharge Sepsis Event Note - Evaluation Sepsis Screening Result: No Definite Risk - Focused Exam Date Exam was Performed: 12/15/19 Time Exam was Performed: 09:08
== END 2019-12-09 18:24 ==
LOC: JD.ED 14:29
DX: J90 Pleural effusion, not elsewhere classified (principal); R09.02 Hypoxemia; K70.31 Alcoholic cirrhosis of liver with ascites; K21.9 Gastro-esophageal reflux disease without esophagitis; M10.9 Gout, unspecified; Z79.899 Other long term (current) drug therapy
CPT/HCPCS: 36415; 71045; 71045-26; 80053; 80307; 82140; 83880; 85025; 85610; 85730; 99283; 99285-25

== ENCOUNTER → 2020-02-12 | Day surgery (SDC) | payer BC ==
[2020-02-12 08:50] VITALS: PULSE 105
--- NOTE | 2020-02-12 08:50 | PCM.PRNOTE ---
- Free Text/Narrative Note: Date: 01/19/2020 Procedure: Paracentesis Consent was obtained and time out performed. The patient was lying supine, slightly to his left. The LLQ was prepped and draped in sterile fashion, and 5 cc 1% lidocaine was injected intradermally. At this site, the local anesthetic needle and syringe were inserted into the peritoneal cavity and straw colored fluid aspirated. Local anesthetic was injected on the way out to anesthetize the peritoneum. A stab incision was made with the 11 blade to widen the opening at the skin. The paracentesis needle was passed into the peritoneal cavity until ascites was aspirated. The catheter over the needle was manually advanced into the fluid collection, and the needle and syringe withdrawn. Tubing was hooked to the catheter and connected to negative pressure glass bottles. A total of nearly 6 L ascites was drained. No specimen was sent for analysis. The patient tolerated the procedure well. The catheter was withdrawn and gauze and tegaderm dressing applied. Espinoza Carmichael MD General Surgery
[2020-02-12 09:16] VITALS: BP 109/72
== END ==
LOC: JD.SDS 08:11 → JD.IVTHER 08:11
PROVIDERS: ATTEND Pediatrics
DX: K74.60 Unspecified cirrhosis of liver (principal)
CPT/HCPCS: 49082

== ENCOUNTER 2020-04-16 11:08 | Emergency (ER) | payer BC ==
[2020-04-16 11:24] VITALS: BP 126/91; PULSE 108
[2020-04-16] MEDS ORDERED: Albumin 25% 12.5 GM/50 ML BAG IV ONE ×3 (11:42→11:59)
[2020-04-16] MEDS ORDERED: Sodium Chloride 0.9% 10 ML Syringe FLUSH PRN (11:45)
--- NOTE | 2020-04-16 11:56 | EDM.PDOC ---
<Tawny Granger Shirley - Last Filed: 04/16/20 12:00> ED HPI GENERAL MEDICAL PROBLEM - General Chief Complaint: Respiratory Problem Stated Complaint: SOB Time Seen by Provider: 04/16/20 11:34 Source of Information: Reports: Patient, RN Notes Reviewed, Significant Other () History Limitations: Reports: No Limitations - History of Present Illness INITIAL COMMENTS - FREE TEXT/NARRATIVE: Patient is a 60-year-old male who presents to the ED today for his increasing shortness of breath. Patient notes that he has history of liver failure, and does have ascites due to this. He states that he is scheduled to go to [facility] in the next week or 2 for possible liver transplant. Patient notes that he had a paracentesis done roughly 1 week ago, performed by Dr. Carmichael. He notes that he had a colonoscopy done 3 days ago, and had to drink the GoLYTELY, and he has appreciated increased swelling in his abdomen, and legs after this. He also states that this is what is causing his shortness of breath, and his notes that his O2 sats have been lower than they normally are at home, in the low 90s roughly. O2 sat at time of triage is 93% on room air, patient is afebrile at 97.4 F. Pulse is slightly tachycardic at 108 bpm, respiratory rate is slightly decreased at 13 breaths/min, blood pressure 126/91. Patient denies any other sick-like symptoms, fever/chills, chest pain, cough. Abdomen Pain Score (Numeric/FACES): 5 - Related Data Allergies Allergy/AdvReac Type Severity Reaction Status Date / Time No Known Allergies Allergy Verified 12/09/19 14:57 Home Meds: Home Meds Allopurinol [Zyloprim] 150 mg PO DAILY 11/20/19 [History] ALPRAZolam [Alprazolam] 1 mg PO TID PRN 04/16/20 [History] Cholecalciferol (Vitamin D3) [Vitamin D3] 5,000 mg PO DAILY 04/16/20 [History] Escitalopram [Lexapro] 10 mg pe PO DAILY 04/16/20 [History] Folic Acid 1 mg PO DAILY 04/16/20 [History] Furosemide 20 mg PO DAILY 04/16/20 [History] Lactulose [Chronulac] 15 ml PO TID 04/16/20 [History] Latanoprost/Pf [Latanoprost 0.005% Eye Drop] 1 drop TOP DAILY 04/16/20 [History] Magnesium Oxide 400 mg PO DAILY 04/16/20 [History] Ondansetron [Zofran] 4 mg PO Q6HR PRN 04/16/20 [History] Pantoprazole [ProTONIX] 40 mg PO BID 04/16/20 [History] Phytonadione [Vitamin K] 50 mcg PO WEEKLY 04/16/20 [History] Potassium Chloride [K-Tab ER] 10 meq PO DAILY 04/16/20 [History] Rifaximin [Xifaxan] 550 mg PO BID 04/16/20 [History] Sennosides/Docusate Sodium [Senna Plus 8.6-50 mg Tablet] 1 tab PO DAILY 04/16/20 [History] Thiamine Mononitrate (Vit B1) [Vitamin B-1] 125 mg PO DAILY 04/16/20 [History] Zinc 50 mg PO DAILY 04/16/20 [History] Past Medical History HEENT History: Reports: Epistaxis Gastrointestinal History: Reports: GERD, Other (See Below) (liver failure/ascites) Musculoskeletal History: Reports: Gout Psychiatric History: Reports: Addiction, Anxiety - Past Surgical History GI Surgical History: Reports: Abdominal paracentesis (last performed [address] 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 ED EXAM, GENERAL - Physical Exam Exam: See Below Exam Limited By: No Limitations General Appearance: Alert, WD/WN, No Apparent Distress Eye Exam: Bilateral Eye: EOMI, Normal Inspection, PERRL Ears: Normal External Exam Nose: Normal Inspection Throat/Mouth: Normal Inspection, Normal Lips, Normal Teeth, Normal Gums, Normal Oropharynx, Normal Voice, No Airway Compromise Head: Atraumatic, Normocephalic Neck: Normal Inspection Respiratory/Chest: No Respiratory Distress, Lungs Clear, Normal Breath Sounds, No Accessory Muscle Use, Chest Non-Tender Cardiovascular: Normal Peripheral Pulses, Regular Rate, Rhythm, No Murmur Peripheral Pulses: 3+: Radial (L), Radial (R) GI/Abdominal: Normal Bowel Sounds, Soft, Non-Tender, Distended Extremities: Normal Inspection, Normal Capillary Refill, Pedal Edema (1+ bilateral pedal edema) Neurological: Alert, Oriented, Normal Cognition, No Motor/Sensory Deficits Psychiatric: Normal Affect, Normal Mood Skin Exam: Warm, Dry, Intact, Normal Color Course - Re-Assessments/Exams Free Text/Narrative Re-Assessment/Exam: 04/16/20 12:01 Patient presents to the ED for evaluation of his ascites and shortness of breath. I did discuss the case with Dr. Macias, and he would be willing to perform paracentesis in the ER today. He does recommend giving IV albumin, I have ordered as such. Patient will have labs to include CBC, CMP, and PT/INR, PTT for evaluation along with a chest x-ray. He is to receive 2-50 mL bags of 25% albumin Departure - Departure Disposition: Home, Self-Care 01 Clinical Impression: Cirrhosis of liver Qualifiers: Hepatic cirrhosis type: alcoholic cirrhosis Ascites presence: with ascites Qualified Code(s): K70.31 - Alcoholic cirrhosis of liver with ascites Ascites Qualifiers: Ascites type: due to alcoholic cirrhosis Qualified Code(s): K70.31 - Alcoholic cirrhosis of liver with ascites - Discharge Information Instructions: Cirrhosis, Ascites Referrals: Silver Gilmore MD [Primary Care Provider] - Forms: ED Department Discharge Additional Instructions: Evaluation in the emergency room today in regards to significant accumulation of fluid in your abdomen making it difficult to breathe and no room to eat. Known cirrhosis of the liver with recurrent ascites and accumulation of fluid in the abdomen. Last paracentesis was done approximately a week ago. Are able to remove approximately 9600 mils of anna-colored fluid. Allergy to the procedure well. You were given 25 g of albumin protein intravenously while in the ED as well. This is in an effort to try and prevent or slow down the reaccumulation of fluid in the abdomen. Continue fluids and all medications as before. Sepsis Event Note (ED) - Evaluation Sepsis Screening Result: No Definite Risk <Kostas Macias - Last Filed: 04/21/20 07:50> ED ROS GENERAL - Review of Systems Review Of Systems: See Below Course - Vital Signs Last Recorded V/S: Last Vital Signs Temp 36.3 C 04/16/20 11:18 Pulse 108 H 04/16/20 11:18 Resp 13 04/16/20 11:18 BP 126/91 H 04/16/20 11:18 Pulse Ox 93 L 04/16/20 11:18 - Orders/Labs/Meds Labs: Laboratory Tests 04/16/20 04/16/20 04/16/20 Range/Units 11:45 11:45 11:45 WBC 6.97 (4.23-9.07) K/mm3 RBC 4.04 L (4.63-6.08) M/mm3 Hgb 12.5 L D (13.7-17.5) gm/dl Hct 37.5 L (40.1-51.0) % MCV 92.8 H (79.0-92.2) fl MCH 30.9 (25.7-32.2) pg MCHC 33.3 (32.2-35.5) g/dl RDW Std Deviation 47.3 H (35.1-43.9) fL Plt Count 135 L (163-337) K/mm3 MPV 9.4 (9.4-12.3) fl Neutrophils % (Manual) 57 (40-60) % Band Neutrophils % 0 (0-10) % Lymphocytes % (Manual) 26 (20-40) % Atypical Lymphs % 0 % Monocytes % (Manual) 12 H (2-10) % Eosinophils % (Manual) 4 (0.8-7.0) % Basophils % (Manual) 1 (0.2-1.2) Platelet Estimate Adequate RBC Morph Comment Normal PT 12.9 H (9.7-12.0) SECONDS INR 1.20 APTT 30 (22-31) SECONDS Sodium 139 (136-145) mEq/L Potassium 3.6 (3.5-5.1) mEq/L Chloride 102 (98-107) mEq/L Carbon Dioxide 27 (21-32) mEq/L Anion Gap 13.6 (5-15) BUN 12 (7-18) mg/dL Creatinine 1.2 (0.7-1.3) mg/dL Est Cr Clr Drug Dosing TNP Estimated GFR (MDRD) > 60 (>60) mL/min BUN/Creatinine Ratio 10.0 L (14-18) Glucose 133 H (74-106) mg/dL Calcium 8.6 (8.5-10.1) mg/dL Total Bilirubin 1.8 H (0.2-1.0) mg/dL AST 53 H (15-37) U/L ALT 29 (16-63) U/L Alkaline Phosphatase 86 (46-116) U/L Total Protein 6.6 (6.4-8.2) g/dl Albumin 2.0 L (3.4-5.0) g/dl Globulin 4.6 gm/dL Albumin/Globulin Ratio 0.4 L (1-2) Meds: Medications Discontinued Medications Generic Name Dose Route Start Last Admin Trade Name Freq PRN Reason Stop Dose Admin Albumin Human 12.5 gm in 50 mls @ 100 mls/hr 04/16/20 11:42 Flexbumin 25% IV 04/16/20 12:11 ONETIME ONE Albumin Human 25 gm in 100 mls @ 100 mls/hr 04/16/20 11:56 Flexbumin 25% IV 04/16/20 12:55 ONETIME ONE Albumin Human 12.5 gm in 50 mls @ 100 mls/hr 04/16/20 11:58 04/16/20 14:21 Flexbumin 25% IV 04/16/20 12:27 100 mls/hr ONETIME ONE Administration Albumin Human 12.5 gm in 50 mls @ 100 mls/hr 04/16/20 11:59 04/16/20 14:47 Flexbumin 25% IV 04/16/20 12:28 100 mls/hr ONETIME ONE Administration Lidocaine HCl Confirm 04/16/20 12:41 04/16/20 14:01 Xylocaine 1% Administered 04/16/20 12:42 Not Given Dose 10 ml .ROUTE .STK-MED ONE Lidocaine HCl Confirm 04/16/20 13:12 04/16/20 14:01 Xylocaine 1% Administered 04/16/20 13:13 Not Given Dose 10 ml .ROUTE .STK-MED ONE Lidocaine HCl Confirm 04/16/20 13:20 04/16/20 14:01 Xylocaine 1% Administered 04/16/20 13:21 Not Given Dose 10 ml .ROUTE .STK-MED ONE Lidocaine HCl 10 ml 04/16/20 14:17 04/16/20 14:24 Xylocaine 1% INJECT 04/16/20 14:18 10 ml ONETIME ONE Administration Lidocaine HCl 10 ml 04/16/20 14:18 04/16/20 14:24 Xylocaine 1% INJECT 04/16/20 14:19 10 ml ONETIME ONE Administration Lidocaine HCl 10 ml 04/16/20 14:19 04/16/20 14:24 Xylocaine 1% INJECT 04/16/20 14:20 10 ml ONETIME ONE Administration Lidocaine HCl 10 ml 04/16/20 14:19 04/16/20 14:24 Xylocaine 1% INJECT 04/16/20 14:20 10 ml ONETIME ONE Administration Sodium Chloride 10 ml 04/16/20 11:45 04/16/20 14:23 Saline Flush FLUSH 10 ml ASDIRECTED PRN Administration Keep Vein Open - Re-Assessments/Exams Free Text/Narrative Re-Assessment/Exam: 04/16/20 11:56 Care has been assumed from CHAD Granger as it has become apparent the patient primarily is presenting to the ED for paracentesis due to difficulty breathing and no room to eat. I have discussed the prospect of paracentesis with the patient and his . He has had multiple paracenteses over the last several months. The last time was April 09 and prior to that it was March 30. Dates today he is having trouble breathing and there is no room for food. Plans are for him to travel to [facility] next week to get on the transplant list potentially for a liver transplant. We will await his labs and if they are okay we will proceed with paracentesis. He will also receive aliquots of 50 mils of 25% albumin and restore some of his intravascular volume. 04/16/20 12:20 Labs reveal a white count of 6.97 with 57% neutrophils and no band cells reported. Hemoglobin is 12.5 with hematocrit of 37.5 MCV is elevated high at 92.8. Platelet count 235,000 low normal. PT is 12.9 with an INR of 1.20. PTT is 30. Sodium 139 with a potassium of 3.6. Chloride is 102 with a bicarb of 27. Anion gap is 13.6. BUN is 12 with a creatinine of 1.2. GFR remains greater than 60. Glucose is 133 calcium is 8.6 bilirubin is 1.8 today. AST is 53 with an ALT of 29 alk phos stays normal at 86. Total protein is 6.6 with an albumin fraction of 2.0 which is low. His coags are good enough to proceed with paracentesis. Consent will be obtained. 04/16/20 14:14 centesis completed in the right lower quadrant of the abdomen with removal of 9600 mils of anna-colored fluid. Wound was closed with Dermabond and then will have an OpSite topically. He will continue all of his current medications. He will receive 25 g of albumin intravenously in the ED. 04/16/20 15:04 patient has now completed infusion of 25 g of albumin intravenously. He will be discharged to home. Departure - Departure Time of Disposition: 15:03 Condition: Fair - Discharge Information *PRESCRIPTION DRUG MONITORING PROGRAM REVIEWED*: Not Applicable *COPY OF PRESCRIPTION DRUG MONITORING REPORT IN PATIENT MAX: Not Applicable Paracentesis - Paracentesis Paracentesis Indication: ascites Location: RUQ Skin prep: CDC/MBT Guidelines, Sterile Drapes, Betadine, Chlorhexidine Ultrasound guided: No Local anesthesia: lidocaine 1 % Local anesthesia volume: 20cc Number of Attempts: 2 Device Used: 8 Fr kit device Fluid: yellow Aspirated volume (mls): 9,600 Fluids sent: other (No fluid sent for analysis as the patient has known alcohol induced cirrhosis) Complications: No
--- NOTE | 2020-04-16 12:24 | CR ---
Chest: 2 views of the chest were obtained. Comparison: Prior CT chest of 01/19/20 and chest x-ray of 01/06/20. Small right-sided pleural effusion is seen which has decreased in amount from previous study. Slight scarring within the left base is seen. Mild persisting parenchymal density within the right lung base is seen most likely due to improved but not resolved atelectasis. Upper lungs are clear. Bony structures are unremarkable. Impression: 1. Improved chest x-ray from previous exam. 2. Small right-sided pleural effusion remains as well as increased parenchymal density within the right lung base most likely due to continued atelectasis. Diagnostic code #3 This report was dictated in MDT
[2020-04-16] MEDS ORDERED: Lidocaine 1% 10 ML MDV ONE ×3 (12:41→13:20)
[2020-04-16] MEDS ORDERED: Lidocaine 1% 10 ML MDV INJECT ONE ×4 (14:17→14:19)
== END 2020-04-16 15:17 | disposition home or self-care (01) ==
LOC: JD.ED 11:08
DX: K70.31 Alcoholic cirrhosis of liver with ascites (principal); K21.9 Gastro-esophageal reflux disease without esophagitis; M10.9 Gout, unspecified; F41.9 Anxiety disorder, unspecified; Z79.899 Other long term (current) drug therapy
CPT/HCPCS: 36415; 49082; 71046; 80053; 85007; 85027; 85610; 85730; 96365; 96366; 99285; J2001; P9047; 49083; 99283

== ENCOUNTER 2020-04-22 14:25 | Emergency (ER) | payer BC ==
[2020-04-22 14:39] VITALS: BP 119/76; PULSE 104
--- NOTE | 2020-04-22 14:39 | EDM.PDOC ---
ED HPI GENERAL MEDICAL PROBLEM - General Chief Complaint: Abdominal Pain Stated Complaint: FLUID IN ABDOMEN Time Seen by Provider: 04/22/20 14:38 - History of Present Illness INITIAL COMMENTS - FREE TEXT/NARRATIVE: 60-year-old male presents the emergency room with worsening abdominal ascites. Patient is having worsening abdominal ascites. He is scheduled to be seen at the [facility] for evaluation for potential liver transplant in the very near future. What the patient did not know when he came in is that outpatient surgery was trying to coordinate a time for him to have this done tomorrow. The patient does not have any fevers or chills his breathing is not any worse than normal. The cause of his liver disease is not entirely understood at this point. Abdomen Pain Score (Numeric/FACES): 7 - Related Data Allergies Allergy/AdvReac Type Severity Reaction Status Date / Time No Known Allergies Allergy Verified 12/09/19 14:57 Home Meds: Home Meds Allopurinol [Zyloprim] 150 mg PO DAILY 11/20/19 [History] ALPRAZolam [Alprazolam] 1 mg PO TID PRN 04/16/20 [History] Cholecalciferol (Vitamin D3) [Vitamin D3] 5,000 mg PO DAILY 04/16/20 [History] Escitalopram [Lexapro] 10 mg pe PO DAILY 04/16/20 [History] Folic Acid 1 mg PO DAILY 04/16/20 [History] Furosemide 20 mg PO DAILY 04/16/20 [History] Lactulose [Chronulac] 15 ml PO TID 04/16/20 [History] Latanoprost/Pf [Latanoprost 0.005% Eye Drop] 1 drop TOP DAILY 04/16/20 [History] Magnesium Oxide 400 mg PO DAILY 04/16/20 [History] Ondansetron [Zofran] 4 mg PO Q6HR PRN 04/16/20 [History] Pantoprazole [ProTONIX] 40 mg PO BID 04/16/20 [History] Phytonadione [Vitamin K] 50 mcg PO WEEKLY 04/16/20 [History] Potassium Chloride [K-Tab ER] 10 meq PO DAILY 04/16/20 [History] Rifaximin [Xifaxan] 550 mg PO BID 04/16/20 [History] Sennosides/Docusate Sodium [Senna Plus 8.6-50 mg Tablet] 1 tab PO DAILY 04/16/20 [History] Thiamine Mononitrate (Vit B1) [Vitamin B-1] 125 mg PO DAILY 04/16/20 [History] Zinc 50 mg PO DAILY 04/16/20 [History] Past Medical History - Past Health History Medical/Surgical History: Denies Medical/Surgical History HEENT History: Reports: Epistaxis Gastrointestinal History: Reports: GERD, Other (See Below) (liver failure /ascites) Other Gastrointestinal History: gout Musculoskeletal History: Reports: Gout Psychiatric History: Reports: Addiction, Anxiety - Past Surgical History GI Surgical History: Reports: Abdominal paracentesis (last performed [address] 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 Denies: Abdominal Pain Neurological: Reports: No Symptoms ED EXAM, GI/ABD - Physical Exam Exam: See Below Exam Limited By: No Limitations General Appearance: Alert, No Apparent Distress Head: Atraumatic, Normocephalic Neck: Normal Inspection, Supple, Non-Tender, Full Range of Motion Respiratory/Chest: No Respiratory Distress, Lungs Clear, Normal Breath Sounds, Other (The patient had mild bibasilar crackles initially after a few deep breaths this did resolve). No: Decreased Breath Sounds Cardiovascular: Regular Rate, Rhythm, No Murmur, Other (Minimal lower extremity edema he is got marked abdominal ascites) GI/Abdominal Exam: Normal Bowel Sounds, Soft, Non-Tender, Other (Significant ascites careful examination of the abdomen is entirely negative for any discomfort) Back Exam: Normal Inspection. No: CVA Tenderness (L), CVA Tenderness (R) Extremities: Normal Inspection, Other (Minimal lower extremity edema) Neurological: Alert, Oriented, Normal Cognition Course - Vital Signs Last Recorded V/S: Last Vital Signs Temp 36.8 C 04/22/20 14:38 Pulse 104 H 04/22/20 14:38 Resp 20 04/22/20 14:38 BP 119/76 04/22/20 14:38 Pulse Ox 95 04/22/20 14:38 - Re-Assessments/Exams Free Text/Narrative Re-Assessment/Exam: 04/22/20 15:21 This case was communicated with outpatient surgery here and the patient has an appoint with Dr. Carmichael tomorrow morning at 10 AM at the outpatient surgery center to have this taken care of. I did discuss this with the patient and he is very comfortable waiting till tomorrow to have this done. Departure - Departure Time of Disposition: 15:22 Disposition: Home, Self-Care 01 Clinical Impression: Cirrhosis of liver with ascites Qualifiers: Hepatic cirrhosis type: alcoholic cirrhosis Qualified Code(s): K70.31 - Alcoholic cirrhosis of liver with ascites Clinical Impression: (Ruled Out): Cirrhosis of liver - Discharge Information Referrals: Silver Gilmore MD [Primary Care Provider] - Forms: ED Department Discharge Additional Instructions: Return to the emergency room with any questions problems or worsening symptoms. Follow-up at 10 AM at the outpatient surgery center show up 20 minutes early. He will see Dr. Carmichael there who is anticipating removing some of the fluid in your abdomen. Sepsis Event Note (ED) - Focused Exam Vital Signs: Vital Signs Temp Pulse Resp BP Pulse Ox 04/22/20 14:38 36.8 C 104 H 20 119/76 95
== END 2020-04-22 15:27 | disposition home or self-care (01) ==
LOC: JD.ED 14:25
DX: K70.31 Alcoholic cirrhosis of liver with ascites (principal); K21.9 Gastro-esophageal reflux disease without esophagitis; F41.9 Anxiety disorder, unspecified; Z79.899 Other long term (current) drug therapy
CPT/HCPCS: 99283

== ENCOUNTER 2020-05-03 17:31 | Emergency (ER) | payer BC ==
[2020-05-03] MEDS ORDERED: Sodium Chloride 0.9% 10 ML Syringe FLUSH PRN ×2 (17:54→18:03)
--- NOTE | 2020-05-03 17:56 | EDM.PDOC ---
<John Freeman - Last Filed: 05/03/20 20:01> ED HPI GENERAL MEDICAL PROBLEM - General Chief Complaint: Gastrointestinal Problem Stated Complaint: ABDOMINAL BLOATING Time Seen by Provider: 05/03/20 17:55 Source of Information: Reports: Patient History Limitations: Reports: No Limitations - History of Present Illness INITIAL COMMENTS - FREE TEXT/NARRATIVE: The patient is an unfortunate 60-year-old male who presents the emergency department today with complaint of abdominal ascites. Patient reports that he has had increased swelling over the last week he was seen here 10 days ago and had a paracentesis patient reports that since that time he has had increased swelling to his abdomen he is not having his shortness of breath at this time reports he is having some tightness to his abdomen but no pain no fever no chills no nausea no vomiting no chest pain no shortness of breath Abdomen Pain Score (Numeric/FACES): 8 - Related Data Allergies Allergy/AdvReac Type Severity Reaction Status Date / Time No Known Allergies Allergy Verified 05/03/20 17:58 Home Meds: Home Meds Allopurinol [Zyloprim] 150 mg PO DAILY 11/20/19 [History] ALPRAZolam [Alprazolam] 1 mg PO TID PRN 04/16/20 [History] Cholecalciferol (Vitamin D3) [Vitamin D3] 5,000 mg PO DAILY 04/16/20 [History] Escitalopram [Lexapro] 10 mg pe PO DAILY 04/16/20 [History] Folic Acid 1 mg PO DAILY 04/16/20 [History] Furosemide 20 mg PO DAILY 04/16/20 [History] Lactulose [Chronulac] 15 ml PO TID 04/16/20 [History] Latanoprost/Pf [Latanoprost 0.005% Eye Drop] 1 drop TOP DAILY 04/16/20 [History] Magnesium Oxide 400 mg PO DAILY 04/16/20 [History] Ondansetron [Zofran] 4 mg PO Q6HR PRN 04/16/20 [History] Pantoprazole [ProTONIX] 40 mg PO BID 04/16/20 [History] Phytonadione [Vitamin K] 50 mcg PO WEEKLY 04/16/20 [History] Potassium Chloride [K-Tab ER] 10 meq PO DAILY 04/16/20 [History] Rifaximin [Xifaxan] 550 mg PO BID 04/16/20 [History] Sennosides/Docusate Sodium [Senna Plus 8.6-50 mg Tablet] 1 tab PO DAILY 04/16/20 [History] Thiamine Mononitrate (Vit B1) [Vitamin B-1] 125 mg PO DAILY 04/16/20 [History] Zinc 50 mg PO DAILY 04/16/20 [History] Past Medical History - Past Health History Medical/Surgical History: Denies Medical/Surgical History HEENT History: Reports: Epistaxis Gastrointestinal History: Reports: GERD, Other (See Below) (liver fa ilure/ascites) Other Gastrointestinal History: gout Musculoskeletal History: Reports: Gout Psychiatric History: Reports: Addiction, Anxiety - Past Surgical History GI Surgical History: Reports: Abdominal paracentesis (last performed [address] 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 Denies: Diarrhea, Melena, Nausea, Vomiting ED EXAM, GI/ABD - Physical Exam Exam: See Below Exam Limited By: No Limitations General Appearance: Alert, WD/WN, Mild Distress Ears: Normal External Exam, Normal Canal, Hearing Grossly Normal, Normal TMs Throat/Mouth: Normal Inspection, Normal Lips, Normal Teeth, Normal Gums, Normal Oropharynx, Normal Voice, No Airway Compromise Head: Atraumatic, Normocephalic Neck: Normal Inspection, Supple, Non-Tender, Full Range of Motion Respiratory/Chest: No Respiratory Distress, Lungs Clear, Normal Breath Sounds, No Accessory Muscle Use, Chest Non-Tender Cardiovascular: Normal Peripheral Pulses, Regular Rate, Rhythm, No Edema, No Gallop, No JVD, No Murmur, No Rub GI/Abdominal Exam: Normal Bowel Sounds, Other (Distended, positive fluid wave, patient has a wound on the left side of his abdomen that is healing from prior paracentesis) Back Exam: Normal Inspection, Full Range of Motion, NT Extremities: Other (Bilateral pretibial edema 2+) Neurological: Alert Skin Exam: Warm, Dry Course - Vital Signs Text/Narrative:: Chest x-ray interpreted by me NAD Departure - Departure Disposition: Home, Self-Care 01 Clinical Impression: Abdominal pain Cirrhosis of liver with ascites Qualifiers: Hepatic cirrhosis type: alcoholic cirrhosis Qualified Code(s): K70.31 - Alcoholic cirrhosis of liver with ascites - Discharge Information Instructions: Cirrhosis Referrals: Silver Gilmore MD [Primary Care Provider] - Forms: ED Department Discharge Additional Instructions: Evaluation in the emergency room today in regards to increased abdominal pain associate with shortness of breath and difficulty finding room to eat due to accumulation of fluid in the abdomen called ascites. Ascites is secondary to cirrhosis of the liver. You have had multiple paracenteses procedures performed in the past. You came to the ED hoping to get relief of the pressure in your abdomen by way of paracentesis. We were able to successfully remove 8 L or 8000 mils of anna-colored intra-abdominal ascites fluid. The stab wound was closed with Dermabond. Dermabond will peel off over the next 5 to 7 days. Report to medical care if any signs of infection occur such as redness swelling or obvious pus or if you develop any fever or chills. <Kostas Macias - Last Filed: 05/03/20 20:43> ED HPI GENERAL MEDICAL PROBLEM - History of Present Illness Onset: Other Duration: Chronic (With cirrhosis of the liver greater than 6 months ago.), Getting Worse (Current ascites causing difficulty breathing and eating.) Location: Reports: Abdomen (Reaccumulation of significant amount of ascites fluid) Severity: Moderate Improves with: Reports: Other (Paracentesis only) Worsens with: Reports: Other Context: Reports: Other (Known cirrhosis of liver secondary to alcohol induced cirrhosis.). Denies: Activity (Lying down), Exercise, Lifting, Sick Contact, Trauma Associated Symptoms: Reports: No Other Symptoms, Loss of Appetite, Malaise, Shortness of Breath, Weakness (.). 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 DIRECTED Care 05/03/20 18:03 Active Chest 2V [CR] Stat Exams 05/03/20 17:54 Taken Sodium Chloride 0.9% [Saline Flush] Med 05/03/20 17:54 Active 10 ml FLUSH ASDIRECTED PRN Sodium Chloride 0.9% [Saline Flush] Med 05/03/20 18:03 Active 10 ml FLUSH ASDIRECTED PRN Peripheral IV Insertion Adult [OM.PC] Stat Oth 05/03/20 18:03 Ordered Saline Lock Insert [OM.PC] Stat Oth 05/03/20 17:54 Ordered Medication Orders Sodium Chloride (Saline Flush) 10 ml FLUSH ASDIRECTED PRN PRN Reason: Keep Vein Open Last Admin: 05/03/20 18:38 Dose: 10 ml Documented by: ANN MARIE Sodium Chloride (Saline Flush) 10 ml FLUSH ASDIRECTED PRN PRN Reason: Keep Vein Open Last Admin: 05/03/20 18:40 Dose: 10 ml Documented by: ANN MARIE Labs: Laboratory Tests 05/03/20 05/03/20 05/03/20 Range/Units 18:15 18:15 18:15 WBC 6.95 (4.23-9.07) K/mm3 RBC 4.09 L (4.63-6.08) M/mm3 Hgb 12.6 L (13.7-17.5) gm/dl Hct 38.0 L (40.1-51.0) % MCV 92.9 H (79.0-92.2) fl MCH 30.8 (25.7-32.2) pg MCHC 33.2 (32.2-35.5) g/dl RDW Std Deviation 47.3 H (35.1-43.9) fL Plt Count 114 L (163-337) K/mm3 MPV 9.5 (9.4-12.3) fl Neut % (Auto) 62.6 (34.0-67.9) % Lymph % (Auto) 18.1 L (21.8-53.1) % Eddy % (Auto) 8.8 (5.3-12.2) % Eos % (Auto) 9.4 H (0.8-7.0) Baso % (Auto) 1.0 (0.1-1.2) % Neut # (Auto) 4.35 (1.78-5.38) K/mm3 Lymph # (Auto) 1.26 L (1.32-3.57) K/mm3 Eddy # (Auto) 0.61 (0.30-0.82) K/mm3 Eos # (Auto) 0.65 H (0.04-0.54) K/mm3 Baso # (Auto) 0.07 (0.01-0.08) K/mm3 PT 12.1 H (9.7-12.0) SECONDS INR 1.12 APTT (22-31) SECONDS Sodium 137 (136-145) mEq/L Potassium 4.0 (3.5-5.1) mEq/L Chloride 104 (98-107) mEq/L Carbon Dioxide 26 (21-32) mEq/L Anion Gap 11.0 (5-15) BUN 15 (7-18) mg/dL Creatinine 1.3 (0.7-1.3) mg/dL Est Cr Clr Drug Dosing TNP Estimated GFR (MDRD) 57 (>60) mL/min BUN/Creatinine Ratio 11.5 L (14-18) Glucose 189 H (74-106) mg/dL Calcium 8.7 (8.5-10.1) mg/dL Total Bilirubin 1.5 H (0.2-1.0) mg/dL AST 60 H (15-37) U/L ALT 37 (16-63) U/L Alkaline Phosphatase 112 (46-116) U/L Total Protein 7.1 (6.4-8.2) g/dl Albumin 2.1 L (3.4-5.0) g/dl Globulin 5.0 gm/dL Albumin/Globulin Ratio 0.4 L (1-2) /04/17 Range/Units 18:15 WBC (4.23-9.07) K/mm3 RBC (4.63-6.08) M/mm3 Hgb (13.7-17.5) gm/dl Hct (40.1-51.0) % MCV (79.0-92.2) fl MCH (25.7-32.2) pg MCHC (32.2-35.5) g/dl RDW Std Deviation (35.1-43.9) fL Plt Count (163-337) K/mm3 MPV (9.4-12.3) fl Neut % (Auto) (34.0-67.9) % Lymph % (Auto) (21.8-53.1) % Eddy % (Auto) (5.3-12.2) % Eos % (Auto) (0.8-7.0) Baso % (Auto) (0.1-1.2) % Neut # (Auto) (1.78-5.38) K/mm3 Lymph # (Auto) (1.32-3.57) K/mm3 Eddy # (Auto) (0.30-0.82) K/mm3 Eos # (Auto) (0.04-0.54) K/mm3 Baso # (Auto) (0.01-0.08) K/mm3 PT (9.7-12.0) SECONDS INR APTT 29 (22-31) SECONDS Sodium (136-145) mEq/L Potassium (3.5-5.1) mEq/L Chloride (98-107) mEq/L Carbon Dioxide (21-32) mEq/L Anion Gap (5-15) BUN (7-18) mg/dL Creatinine (0.7-1.3) mg/dL Est Cr Clr Drug Dosing Estimated GFR (MDRD) (>60) mL/min BUN/Creatinine Ratio (14-18) Glucose (74-106) mg/dL Calcium (8.5-10.1) mg/dL Total Bilirubin (0.2-1.0) mg/dL AST (15-37) U/L ALT (16-63) U/L Alkaline Phosphatase (46-116) U/L Total Protein (6.4-8.2) g/dl Albumin (3.4-5.0) g/dl Globulin gm/dL Albumin/Globulin Ratio (1-2) Meds: Medications Generic Name Dose Route Start Last Admin Trade Name Freq PRN Reason Stop Dose Admin Sodium Chloride 10 ml 05/03/20 17:54 05/03/20 18:38 Saline Flush FLUSH 10 ml ASDIRECTED PRN Administration Keep Vein Open Sodium Chloride 10 ml 05/03/20 18:03 05/03/20 18:40 Saline Flush FLUSH 10 ml ASDIRECTED PRN Administration Keep Vein Open Discontinued Medications Generic Name Dose Route Start Last Admin Trade Name Jc PRN Reason Stop Dose Admin Albumin Human 12.5 gm in 50 mls @ 100 mls/hr 05/03/20 18:05 05/03/20 18:37 Flexbumin 25% IV 05/03/20 18:34 100 mls/hr ONETIME ONE Administration Lidocaine/Epinephrine 20 ml 05/03/20 18:31 05/03/20 18:41 Xylocaine 1% With Epinephrine 1:100,000 INJECT 05/03/20 18:32 20 ml ONETIME ONE Administration - Re-Assessments/Exams Free Text/Narrative Re-Assessment/Exam: 05/03/20 18:10 and seen in consultation at the request of judy Freeman. Patient came to the ED seeking paracentesis due to reaccumulation of ascites fluid secondary to cirrhosis of the liver which was alcohol induced. They have done a paracentesis on him on 16 April. He has had 1 since [address] Michaels son surgeon I believe on the . Patient did receive 25 g of albumin intravenously when I had seen him and he stated he felt great for about 4 to 5 days. I have examined the patient and discussed the procedure with him. He indeed has significant ascites fluid. Lungs sounds clear to auscultation percussion. He has agreed to paracentesis and a consent will be obtained. Plan will be to anesthetize the abdominal wall with 1% lidocaine with epinephrine. Plan :I will also be to give him 25 g of albumin IV. Portable chest x-ray reviewed and shows compression of the lungs due to ascites fluid. Minimal infiltrate right lower lobe believed to be due to atelectasis. Cardiac silhouette normal.Labs reveal a normal white count of 6.95. Auto differential shows 62% neutrophils. Hemoglobin is 12.6 with hematocrit of 38.0. MCV is 92.9 slightly elevated. PT is 12.1 with an INR of 1.12. PTT is 29. Sodium is 137 with a potassium of 4.0. Chloride 104 with a bicarb of 26. Anion gap is 11.0. BUN is 15 with a creatinine of 1.3. Glucose is elevated at 189. Calcium is 8.7. Total bilirubin is 1.5 with an AST of 60 and an ALT of 37. Alk phos days is 112. Total protein 7.1 with an albumin fraction of 2.1. 05/03/20 20:25 paracentesis performed under local anesthetic using 15 mils of lidocaine 1% with epinephrine. Right lower quadrant was accessed with a single attempt. Able to drain 8000 mils of anna-colored ascitic fluid from the abdominal cavity. Patient tolerated the procedure very well. The stab wound was closed using Dermabond. Patient knows how to care for this as he has had it done on multiple occasions in the past. She be discharged in the care of his . Departure - Departure Time of Disposition: 20:29 Condition: Fair - Discharge Information *PRESCRIPTION DRUG MONITORING PROGRAM REVIEWED*: Not Applicable *COPY OF PRESCRIPTION DRUG MONITORING REPORT IN PATIENT MAX: Not Applicable Sepsis Event Note (ED) - Focused Exam Vital Signs: Vital Signs Temp Pulse Resp BP Pulse Ox 05/03/20 17:54 36.3 C 95 16 118/79 91 L - My Orders Last 24 Hours: My Active Orders 05/03/20 18:03 Peripheral IV Care [RC] . DIRECTED Sodium Chloride 0.9% [Saline Flush] 10 ml FLUSH ASDIRECTED PRN Peripheral IV Insertion Adult [OM.PC] Stat - Assessment/Plan Last 24 Hours: My Active Orders 05/03/20 18:03 Peripheral IV Care [RC] . DIRECTED Sodium Chloride 0.9% [Saline Flush] 10 ml FLUSH ASDIRECTED PRN Peripheral IV Insertion Adult [OM.PC] Stat Paracentesis - Paracentesis Paracentesis Indication: ascites Location: RLQ Skin prep: CDC/MBT Guidelines, Sterile Drapes, Chlorhexidine Ultrasound guided: No Local anesthesia: other Local anesthesia volume: 15cc Number of Attempts: 1 Device Used: 8 Fr kit device Fluid: yellow Aspirated volume (mls): 8,000 Complications: No Dressing: adhesive dressing, other
[2020-05-03] MEDS ORDERED: Albumin 25% 12.5 GM/50 ML BAG IV ONE (18:05)
[2020-05-03] MEDS ORDERED: Lidocaine 1% with EPINEPHrine 1:100,000 20 ML MDV INJECT ONE (18:31)
[2020-05-03 21:08] VITALS: BP 105/64; PULSE 96
--- NOTE | 2020-05-04 06:33 | CR ---
Chest: PA and lateral views of the chest were obtained. Comparison: Previous chest x-ray of 04/16/20. Findings: Continuing increased density posteriorly within the right lung base. Findings are slightly improved from previous exam. Findings have not yet resolved. Slight scarring within the left base is stable. Upper lungs are clear. Heart size and mediastinum are normal. Bony structures are unremarkable. Impression: 1. Increased density within the right lung base with probable pleural thickening. Findings are mildly improved from previous exam. 2. Nothing acute is otherwise seen. Diagnostic code #3 This report was dictated in MDT
== END 2020-05-03 20:47 | disposition home or self-care (01) ==
LOC: JD.ED 17:31
DX: K70.31 Alcoholic cirrhosis of liver with ascites (principal); K21.9 Gastro-esophageal reflux disease without esophagitis; F41.9 Anxiety disorder, unspecified; M10.9 Gout, unspecified; Z79.899 Other long term (current) drug therapy
CPT/HCPCS: 36415; 49082; 71046; 80053; 85025; 85610; 85730; 96365; 99284; P9047